=== PATIENT | female | born 1950 | race Caucasian/White ===

== ENCOUNTER 2016-08-13 06:49 | Outpatient (CLI) ==
[2016-08-13] MEDS ORDERED: DOBUTAMINE 250 ML IV ONE (07:03)
[2016-08-13] MEDS ORDERED: ATROPINE SULFATE PFS ONE (07:03)
--- NOTE | 2016-08-16 12:56 | DOBSTECHO ---
Ordering Physician: MICKEY SANDS Date of Test: 08/13/16 Reason for Examination: SOB, AORTIC STENOSIS Current Medications: SKELAXIN, NORCO, NEURONTIN, ATIVAN, LIPITOR, ZEBETA, FENOFIBRATE Height: 69" Weight: 257 LBS Target Heart Rate: 129/152 ST Segment Stage Time HR BP Rhythm +/- Up Down Comments/Symptoms Control Sitting 60 118/58 SR X NONE Dobutamine 250mg/D5W 5cmg/KG/mn 10cmg/KG/mn 3" 76 124/56 SR X NONE 15cmg/KG/mn 2" 86 SR X NONE 20cmg/KG/mn 2" 96 130/62 SR X NONE 25cmg/KG/mn 1.42 110 SR X NONE 30cmg/KG/mn 35cmg/KG/mn 40cmg/KG/mn Time: 3" HR B/P Time: 7" HR B/P Time: 8" HR B/P Recovery 96 130/56 Recovery 82 116/52 Recovery 76 Total Time: 8:42 Duration of Exercise: Maximum Heart Rate Reached: 110 Reason for Termination: Interpretation: 1. NO EVIDENCE OF ISCHEMIA WITH HEART RATE RESTING 60/MINUTE TO 110/MINUTE WITH DOBUTAMINE INFUSION 2. NO CHEST PAIN OR CHEST DISCOMFORT 3. NORMAL LEFT VENTRICULAR CONTRACTILITY AT REST AND WITH DOBUTAMINE INFUSION [facility]
--- NOTE | 2016-08-16 13:01 | ECHOSTRESS ---
Date of Exam: 08/13/16 Ordering Physician: MICKEY SANDS Reason for Echo: SOB, AORTIC STENOSIS, DOBUTAMINE STRESS --NO ISCHEMIA M-Mode Normal Adult Results LV Dimensions Normal Adult Results AoV Opening excursions >1.6 LVEDD-base- 3.5-5.8 Ao root dimensions 2.0-3.7 LVESD-base- 3.1-4.6 L. Atrium dimensions 1.9-3.8 Post. Wall thickness 0.8-1.1 IV septum (thickness) 0.7-1.2 Post. Wall excursion 0.72-1.3 Septal motion Systolic motion R. Ventricular cavity 1.5-2.0 LVEF 60% Paradoxical septal wall motion 2-D: NORMAL LEFT VENTRICULAR CONTRACTILITY--RESTING AND WITH DOBUTAMINE INFUSION M-MODE: MV: AV: TV: PV: CHAMBER SIZE: WALL MOTION: NORMAL LEFT VENTRICULAR CONTRACTILITY--RESTING AND WITH DOBUTAMINE INFUSION PERICARDIUM: INTERPRETATION: 1. NORMAL LEFT VENTRICULAR CONTRACTILITY--RESTING AND WITH DOBUTAMINE INFUSION MTDD
== END 2016-08-13 06:50 | disposition home or self-care (01) ==
LOC: CAR 06:49
PROVIDERS: ATTEND Internal Medicine
DX: R06.02 Shortness of breath (principal); I35.0 Nonrheumatic aortic (valve) stenosis

== ENCOUNTER 2016-10-08 12:08 | Outpatient (CLI) ==
--- NOTE | 2016-10-08 12:46 | DI ---
EXAM: Radiographs, left rib HISTORY: Left rib pain. COMPARISON: Chest radiograph 11/25/2015. TECHNIQUE: Three views. FINDINGS/IMPRESSION: No left rib fracture identified. Left lung is clear without pleural effusion or pneumothorax.
== END 2016-10-08 12:09 | disposition home or self-care (01) ==
LOC: RAD 12:08
PROVIDERS: ATTEND Emergency Medicine
DX: R07.81 Pleurodynia (principal)

== ENCOUNTER 2018-01-19 12:45 | Outpatient (CLI) ==
--- NOTE | 2018-01-19 15:02 | CT ---
EXAM: CT of the lumbar spine without contrast History: Lower back pain. Technique: Multiplanar CT images through the lumbar spine were obtained without the administration o f IV contrast Findings: 2.7 cm benign left adrenal adenoma. Atherosclerotic vascular calcifications. No acute fracture or subluxation of the lumbar spine. Mild to moderate multilevel degenerative disc space narrowing with endplate sclerosis and osteophyte formation. T12-L1: No significant bony central canal stenosis or bony neural foraminal narrowing. L1-L2: No significant bony central canal stenosis or bony neural foraminal narrowing. L2-L3: Small paracentral disc protrusion effacing anterior thecal sac with mild central canal stenos is. Moderate right and mild left bony neural foraminal narrowing secondary to ligamentous and facet hypertrophy. L3-L4: Small disc bulge effacing anterior thecal sac with mild central canal stenosis. Moderate kiara ateral bony neural foraminal narrowing secondary to ligamentous and facet hypertrophy. L4-L5: Modest disc protrusion effacing anterior thecal sac with moderate to severe central canal tye nosis. Moderate to severe left and mild to moderate right bony neural foraminal narrowing secondary to ligamentous and facet hypertrophy. There may be compromise of the left exiting nerve root. L5, S1: No significant disc bulge or bony central canal stenosis. Severe bilateral bony neural fora pearl narrowing secondary to ligamentous and facet hypertrophy. Impression: 1. No acute osseous abnormality of the lumbar spine. 2. Degenerative changes with level by level analysis as detailed above. Moderate to severe central canal stenosis at L4-L5 with possible compromise of the left exiting nerve root at L4-L5. 3. Benign left adrenal adenoma
== END 2018-01-19 12:46 | disposition home or self-care (01) ==
LOC: RAD 12:45
PROVIDERS: ATTEND Internal Medicine
DX: M54.5 Low back pain (principal); M47.9 Spondylosis, unspecified

== ENCOUNTER 2018-08-23 16:02 | Outpatient (CLI) ==
--- NOTE | 2018-08-23 16:51 | DI ---
EXAM: Two views of the left humerus. History: Left arm pain. Findings: No acute fracture or dislocation. Sclerosis and cystic change within the superior lateral aspect of the humeral head. No radiopaque foreign bodies. Impression: 1. No acute osseous abnormality. 2. Rotator cuff disease
--- NOTE | 2018-08-23 16:51 | DI ---
EXAM: Three views of the left shoulder. History: Left shoulder pain. Findings: Sternotomy wires. No acute fracture or dislocation. Mild to moderate narrowing of the le ft AC joint and left glenohumeral joint with small osteophytes. Undersurface osteophytes of the acro mion. Sclerosis and cystic change within the superior lateral aspect of the humeral head. Impression: 1. No acute osseous abnormality. 2. Mild to moderate osteoarthritis. 3. Rotator cuff disease
== END 2018-08-23 16:03 | disposition home or self-care (01) ==
LOC: RAD 16:02
PROVIDERS: ATTEND Internal Medicine
DX: M25.512 Pain in left shoulder (principal); M79.602 Pain in left arm

== ENCOUNTER 2018-10-17 16:23 | Emergency (ER) ==
[2018-10-17 16:36] VITALS: TEMP 97; BMI 38.3
--- NOTE | 2018-10-17 17:42 | DI ---
EXAM: Single view chest. HISTORY: Weakness, congested COMPARISON: 11/25/2015 FINDINGS: The heart is mildly enlarged. Operative changes of midline sternotomy and cardiac valvulop lasty is seen. Pulmonary vascularity is within normal limits. No focal airspace opacity or pleural effusion is seen. Osseous structures are unremarkable. IMPRESSION: No acute cardiopulmonary findings. Mild cardiomegaly with prior operative changes of heart.
[2018-10-17] MEDS: SODIUM CHLORIDE 1,000 ML IV ONE (17:59)
[2018-10-17 18:09] VITALS: BP 84/38
--- NOTE | 2018-10-17 18:29 | ED.PDOC ---
General ED Provider: Dr. IVY VALDEZ Chief Complaint: Chest Pain Stated Complaint: Chest Pressure/Weakness. Son brings pt in states she's been ill since mid Sep after undergoing Colonoscopy. Has been hospitlized twice since then but is getting worse.Today developed Lt Chest, Shoulder and neck pain.Currently denies fever or chills Time Seen by Physician: 16:45 Mode of Arrival: Wheelchair Information Source: Patient Exam Limitations: No limitations Primary Care Provider: MICKEY SANDS Nursing and Triage Documentation Reviewed and Agree: Yes Does patient meet sepsis criteria?: No System Inflammatory Response Syndrome: Not Applicable Sepsis Protocol: For patient's 13 years and over: Temp is 96.8 and below OR 101 and greater Pulse >90 BPM Resp >20/minute Acutely Altered Mental Status Are patient's symptoms suggestive of a new infection, such as: -Pneumonia -Skin, Soft Tissue -Endocarditis -UTI -Bone, Joint Infection -Implantable Device -Acute Abdominal Infection -Wound Infection -Meningitis -Blood Stream Catheter Infection -Unknown Cardiovascular Complaint Exam - Chest Pain Complaint/Exam Onset: Sudden Duration: 3 hr Symptoms Are: Still present Timing: Intermittent Length of Chest Pain Episodes: 5-10 min Initial Severity: Moderate Current Severity: Moderate Location: Reports: Diffuse, Lower sternal, Left anterior, Left lateral Pain Radiates: Reports: Back, Left shoulder, Jaw, Neck, Epigastrium Character: Reports: Tightness, Pressure Aggravating: Reports: Deep breaths Alleviating: Reports: None Associated Signs and Symptoms: Reports: Diaphoresis, Nausea, Back pain. Denies : Vomiting, Fever, Palpitations, Cough, Hemoptysis, Abdominal pain, Dizziness, Short of air, Calf pain, Calf swelling Related History: Denies: Similar episode Related Surgical History: Reports: Valve Replacement History of Healthcare-Acquired Pneumonia: Reports: No AMI/ACS Risk Factors: Reports: Sedentary TAD Risk Factors: Reports: None Pulmonary Embolism Risk Factors: Reports: None Prior Care for this Complaint: No Recent Stress Test: No Recent Echo/LV Function: No JVD Present: No Subcutaneous Emphysema Present: No Diminshed Breath Sounds: No Reproducible Chest Wall Pain: No Bilateral Pulses Present: Yes Unequal Pulses Noted: No If Risk Factors for AMI/ACS Consider: EKG, Cardiac Enzymes Care and Dx Studies Discussed With: PCP, Consultants (Hospitalist req to infuse additional IV fluid before transfer to assure BP stable/ suggested placement Central line) Review of Systems - Review Of Systems Constitutional: Reports: Malaise, Weakness, Loss of appetite Eyes: Reports: No symptoms Ears, Nose, Mouth, Throat: Reports: No symptoms Respiratory: Reports: Short of air Cardiac: Reports: Chest pain GI: Reports: No symptoms : Reports: No symptoms Musculoskeletal: Reports: No symptoms Skin: Reports: No symptoms Neurological: Reports: No symptoms Endocrine: Reports: No symptoms Hematologic/Lymphatic: Reports: No symptoms All Other Systems: Reviewed and Negative Past Medical History - Past Medical History Previously Healthy: No Endocrine: Reports: Unknown Cardiovascular: Reports: Hypertension, Other (valve surgery) Respiratory: Reports: None Hematological: Reports: None Gastrointestinal: Reports: Other ( Diarrhea) Genitourinary: Reports: None Neuro/Psych: Reports: None Musculoskeletal: Reports: None Cancer: Reports: None Last Menstrual Period: menopause - Surgical History General Surgical History: Reports: None, Unknown - Family History Family History: Reports: Unknown - Social History Smoking Status: Never smoker Hx Substance Use: No Alcohol Screening: None Lives: Alone - Immunizations Tetanus Shot up to Date: Yes Influenza Vaccine within 12 Months: Yes Physical Exam - Physical Exam Appearance: Ill-appearing, Obese Ill-appearing: Moderate Pain Distress: Moderate Eyes: MATT, EOMI, Conjunctiva clear ENT: Ears normal, Nose normal, Oropharynx normal Neck: Supple Respiratory: Airway patent, Breath sounds clear, Breath sounds equal, Respirations nonlabored Cardiovascular: RRR, Pulses normal, No rub, No murmur, Bradycardia GI/: Soft, Nontender, No masses, Bowel sounds normal, No Organomegaly Musculoskeletal: Normal strength, ROM intact, No edema, No calf tenderness Skin: Warm, Dry, Normal color Neurological: Sensation intact, Motor intact, Reflexes intact, Cranial nerves intact, Alert, Oriented Psychiatric: Affect appropriate, Mood appropriate Interpretation - Radiology Interpretation Radiology Results: Negative (no acute findings ; prev valvuloplasty) Re-Evaluation - Re-Evaluation Time of Re-Evaluation: 19:30 Status: Improved Vital Signs Stable: Yes (BP 106/60; 96/56) Appearance: NAD Lungs: Clear Skin: Warm and Dry Neuro: Alert and Oriented X3 CV: RRR - Re-Evaluation Time of Re-Evaluation: 20:00 Status: Improved Vital Signs Stable: Yes Appearance: NAD Skin: Warm and Dry Neuro: Alert and Oriented X3 CV: RRR Physician Notification - Case Discussed Physician Notified: Dr Sands Time of Notification: 17:15 (Rec Transfer to higher level of care) Critical Care Note - Critical Care Note Total Time (mins): 60 Course - Course Hematology/Chemistry: 10/17/18 16:50 10/17/18 16:50 Orders, Labs, Meds: Lab Review 10/17/18 10/17/18 10/17/18 16:50 16:50 17:05 WBC 22.57 H RBC 3.51 L Hgb 9.0 L Hct 29.1 L MCV 82.9 MCH 25.6 L MCHC 30.9 L RDW Coeff of Jessica 16.0 H Plt Count 296 Immature Gran % (Auto) 1.0 Neut % (Auto) 82.7 Lymph % (Auto) 7.3 L [place] % (Auto) 8.3 Eos % (Auto) 0.3 Baso % (Auto) 0.4 Immature Gran # (Auto) 0.2 Neut # (Auto) 18.7 H Lymph # (Auto) 1.6 [place] # (Auto) 1.9 Eos # (Auto) 0.1 Baso # (Auto) 0.1 Sodium 141.0 Potassium 3.51 Chloride 104.0 Carbon Dioxide 27.4 Anion Gap 13.11 BUN 37.3 H Creatinine 2.80 H Estimated GFR (MDRD) 17.00 BUN/Creatinine Ratio 13.32 Glucose 127.1 H Lactic Acid Calcium 8.43 Magnesium 2.37 H Total Bilirubin 0.56 AST 20.4 ALT 10.9 Alkaline Phosphatase 89.5 Total Creatine Kinase Troponin I 0.304 H Total Protein 6.19 L Albumin 2.78 L Globulin 3.41 Albumin/Globulin Ratio 0.81 Influ A Molecular Assay Negative by naat Influ B Molecular Assay Negative by naat Aerob & Anaerob Suscept Organism ID Bacterial ID 10/17/18 10/17/18 10/17/18 17:15 17:17 17:27 WBC RBC Hgb Hct MCV MCH MCHC RDW Coeff of Jessica Plt Count Immature Gran % (Auto) Neut % (Auto) Lymph % (Auto) [place] % (Auto) Eos % (Auto) Baso % (Auto) Immature Gran # (Auto) Neut # (Auto) Lymph # (Auto) [place] # (Auto) Eos # (Auto) Baso # (Auto) Sodium Potassium Chloride Carbon Dioxide Anion Gap BUN Creatinine Estimated GFR (MDRD) BUN/Creatinine Ratio Glucose Lactic Acid 2.00 Calcium Magnesium Total Bilirubin AST ALT Alkaline Phosphatase Total Creatine Kinase Troponin I Total Protein Albumin Globulin Albumin/Globulin Ratio Influ A Molecular Assay Influ B Molecular Assay Aerob & Anaerob Suscept Not Reportable Not Reportable Organism ID Gemella haemolysans H Gemella haemolysans H Bacterial ID Final report H Final report H 10/17/18 10/17/18 17:35 17:35 WBC RBC Hgb Hct MCV MCH MCHC RDW Coeff of Jessica Plt Count Immature Gran % (Auto) Neut % (Auto) Lymph % (Auto) [place] % (Auto) Eos % (Auto) Baso % (Auto) Immature Gran # (Auto) Neut # (Auto) Lymph # (Auto) [place] # (Auto) Eos # (Auto) Baso # (Auto) Sodium Potassium Chloride Carbon Dioxide Anion Gap BUN Creatinine Estimated GFR (MDRD) BUN/Creatinine Ratio Glucose Lactic Acid Calcium Magnesium Total Bilirubin AST ALT Alkaline Phosphatase Total Creatine Kinase 22.8 L Troponin I Total Protein Albumin Globulin Albumin/Globulin Ratio Influ A Molecular Assay Influ B Molecular Assay Aerob & Anaerob Suscept Not Reportable Organism ID Gemella haemolysans H Bacterial ID Final report H Orders Category Date Time Status EKG-(ED ONLY) Stat CARDIO 10/17/18 17:03 Completed BLOOD CULTURE Stat LAB 10/17/18 17:38 Completed CBC W/ AUTO DIFF Stat LAB 10/17/18 16:50 Completed CMP [COMPREHENSIVE METABOLIC PANEL] Stat LAB 10/17/18 16:50 Completed CPK [CREATINE KINASE] Stat LAB 10/17/18 17:35 Completed FLU A & B MOLECULAR [FLU A/B MOLECULAR] Stat LAB 10/17/18 17:05 Completed LACTIC ACID Stat LAB 10/17/18 17:27 Completed MAGNESIUM Stat LAB 10/17/18 16:50 Completed POS BC ID AND SENA Stat LAB 10/17/18 17:15 Completed POS BC ID AND SENA Stat LAB 10/17/18 17:35 Completed POS BC ID AND SENA Stat LAB 10/17/18 17:35 Completed POS BC ID AND SENA Stat LAB 10/17/18 17:35 Completed SUSCEPT, AER + ANAEROB Routine LAB 10/17/18 17:17 Completed SUSCEPT, AER + ANAEROB Routine LAB 10/17/18 17:35 Completed SUSCEPT, AER + ANAEROB Stat LAB 10/17/18 17:15 Completed TROPONIN I Stat LAB 10/17/18 16:50 Completed Sodium Chloride 0.9% [Sodium Chloride] 1,000 ml MEDS 10/17/18 17:05 Discontinued IV ONCE CHEST, 1V AP ONLY Stat RADS 10/17/18 17:04 Completed Medications Discontinued Medications Generic Name Dose Route Start Last Admin Trade Name Nae PRN Reason Stop Dose Admin Sodium Chloride 1,000 mls @ 500 mls/hr 10/17/18 17:05 10/17/18 17:59 Sodium Chloride IV 10/17/18 19:04 500 mls/hr ONCE ONE Administration Vital Signs: Temp Pulse Resp BP Pulse Ox 10/17/18 18:00 46 L 84/38 L 10/17/18 17:38 48 L 87/41 L 10/17/18 17:00 53 L 77/40 L 10/17/18 16:30 54 L 86/35 L 10/17/18 16:24 97 F L 82 16 86/35 L 99 ALINE Risk Score ALINE Risk Score: Risk Score Odds of by 30D 0 0.1 (0.1-0.2) 1 0.3 (0.2-0.3) 2 0.4 (0.3-0.5) 3 0.7 (0.6-0.9) 4 1.2 (1.0-1.5) 5 2.2 (1.9-2.6) 6 3.0 (2.5-3.6) 7 4.8 (3.8-6.1) Departure - Departure Time of Disposition: 19:30 Disposition: TSF SHORT-TRM HOSP Discharge Problem: Chest pain, Dehydration, moderate, Troponin level elevated Instructions: Angina (ED), Dehydration (ED) Condition: Fair Pt referred to PMD for follow-up: Yes (Dr Sands) IPMP verified?: No Additional Instructions: Disussed with hospitalist RN Req referral to RE for elev of troponin Allergies/Adverse Reactions: Allergies Penicillins Adverse Reaction (Verified 10/17/18 16:37) Sulfa (Sulfonamide Antibiotics) Adverse Reaction (Verified 10/17/18 16:37) Home Medications: Ambulatory Orders 1 [Unobtainable] 10/17/18 Transfer Form Completed: Yes Disposition Discussed With: Patient, Family (Son's left hospital)
== END 2018-10-17 19:50 | disposition short-term general hospital (02) ==
LOC: ED 16:23
DX: R07.9 Chest pain, unspecified (principal); E86.0 Dehydration; R79.89 Other specified abnormal findings of blood chemistry; R53.1 Weakness; M54.2 Cervicalgia; M25.512 Pain in left shoulder; R10.13 Epigastric pain; R11.0 Nausea; R06.02 Shortness of breath; I10 Essential (primary) hypertension; Z95.2 Presence of prosthetic heart valve; Z78.0 Asymptomatic menopausal state; R23.0 Cyanosis
CPT/HCPCS: 36415; 80053; 82550; 83605; 83735; 84484; 85025; 87040; 87070; 87077; 87186; 87502; 93005; 93010; 96360; 96361; 99285

== ENCOUNTER 2018-11-08 12:58 | Outpatient (CLI) ==
[2018-11-08 18:28] VITALS: BMI 43.4
== END 2018-11-08 13:04 | disposition critical access hospital (66) ==
LOC: AMBL 12:58
PROVIDERS: ATTEND Emergency Medicine
DX: D64.9 Anemia, unspecified (principal); R79.89 Other specified abnormal findings of blood chemistry

== ENCOUNTER 2018-11-08 13:11 | Inpatient (IN) ==
[2018-11-08] MEDS ORDERED: SODIUM CHLORIDE 1,000 ML IV STA ×2 (13:47→18:58)
--- NOTE | 2018-11-08 13:48 | ED.PDOC ---
General ED Provider: Dr. IVY VALDEZ Chief Complaint: Abnormal Labs Stated Complaint: Rectal Bleeding. Sent from [place] for evaluation due to a low H/ H this AM. Past Hx hemorrhoidal bleeding. Advised referred in by pcp Dr Diaz Time Seen by Physician: 13:15 Mode of Arrival: Stretcher Information Source: Patient, Halfway, EMT Primary Care Provider: MICKEY DIAZ Nursing and Triage Documentation Reviewed and Agree: Yes Does patient meet sepsis criteria?: No System Inflammatory Response Syndrome: Not Applicable Sepsis Protocol: For patient's 13 years and over: Temp is 96.8 and below OR 101 and greater Pulse >90 BPM Resp >20/minute Acutely Altered Mental Status Are patient's symptoms suggestive of a new infection, such as: -Pneumonia -Skin, Soft Tissue -Endocarditis -UTI -Bone, Joint Infection -Implantable Device -Acute Abdominal Infection -Wound Infection -Meningitis -Blood Stream Catheter Infection -Unknown GI Complaint Exam - Rectal Complaint/Exam Patient Complains of: Reports: Rectal bleeding Onset/Duration: several weeks intermittently Symptoms Are: Still present Timing: Intermittent Episodes Lasting: Hours Initial Severity: Moderate Current Severity: Mild Location: Reports: Anal, Rectal Character: Reports: Dull, Burning Aggravating: Reports: Bowel movement, Sitting Alleviating: Reports: Position Associated Signs and Symptoms: Reports: Rectal bleeding, Bright red blood w/ stool Related History: Reports: Similar episode, Hemorrhoids Related Surgical History: Reports: AAA Repair Rectal Exam: Present: Internal hemorrhoids, External hemorrhoids, Heme positive , Tenderness (MAGGIE tender. no masses identified; small firm nodular density at anal ring). Absent: Fluctuant rectal mass Review of Systems - Review Of Systems Constitutional: Reports: No symptoms Eyes: Reports: No symptoms Ears, Nose, Mouth, Throat: Reports: No symptoms Respiratory: Reports: No symptoms Cardiac: Reports: No symptoms GI: Reports: No symptoms : Reports: No symptoms Musculoskeletal: Reports: No symptoms Skin: Reports: No symptoms Neurological: Reports: No symptoms Endocrine: Reports: No symptoms Hematologic/Lymphatic: Reports: No symptoms All Other Systems: Reviewed and Negative Past Medical History - Past Medical History Previously Healthy: No Endocrine: Reports: Unknown Cardiovascular: Reports: Hypertension, Other (valve surgery) Respiratory: Reports: None Hematological: Reports: None Gastrointestinal: Reports: Other ( Diarrhea/hemorhoids) Genitourinary: Reports: None Neuro/Psych: Reports: None Musculoskeletal: Reports: None Cancer: Reports: None Last Menstrual Period: menopause - Surgical History General Surgical History: Reports: None, Unknown - Family History Family History: Reports: Unknown - Social History Smoking Status: Never smoker Hx Substance Use: No Alcohol Screening: None - Immunizations Influenza Vaccine within 12 Months: Yes Physical Exam - Physical Exam Appearance: Ill-appearing, Obese Ill-appearing: Mild Pain Distress: Mild Eyes: MATT, EOMI, Conjunctiva clear, Conjunctiva inflammed ENT: Ears normal, Nose normal, Oropharynx normal, Epistaxis Neck: Supple Respiratory: Airway patent, Breath sounds clear, Breath sounds equal, Respirations nonlabored Cardiovascular: RRR GI/: Soft, Nontender, No masses, Bowel sounds normal, No Organomegaly Musculoskeletal: Normal strength, ROM intact, No edema, No calf tenderness Skin: Warm, Dry, Normal color Neurological: Sensation intact, Motor intact, Reflexes intact, Cranial nerves intact, Alert, Oriented Psychiatric: Affect appropriate, Mood appropriate Critical Care Note - Critical Care Note Total Time (mins): 0 Course - Course Hematology/Chemistry: 11/08/18 13:25 11/08/18 13:25 Orders, Labs, Meds: Lab Review 11/08/18 11/08/18 11/08/18 13:25 13:25 13:25 WBC 11.42 H RBC 3.28 L Hgb 8.2 L Hct 27.2 L MCV 82.9 MCH 25.0 L MCHC 30.1 L RDW Coeff of Jessica 17.1 H Plt Count 237 Immature Gran % (Auto) 1.1 Neut % (Auto) 77.5 Lymph % (Auto) 8.[address] [place] % (Auto) 10.6 H Eos % (Auto) 2.0 Baso % (Auto) 0.3 Immature Gran # (Auto) 0.1 Neut # (Auto) 8.9 H Lymph # (Auto) 1.0 [place] # (Auto) 1.2 Eos # (Auto) 0.2 Baso # (Auto) 0.0 Sodium 135.8 Potassium 4.76 Chloride 101.9 Carbon Dioxide 25.0 Anion Gap 13.66 BUN 35.5 H Creatinine 1.02 Estimated GFR (MDRD) 54.00 BUN/Creatinine Ratio 34.80 Glucose 130.0 H Calcium 8.46 Total Bilirubin 1.12 AST 27.3 ALT 12.1 Alkaline Phosphatase 122.2 Total Protein 6.67 Albumin 3.15 L Globulin 3.52 Albumin/Globulin Ratio 0.89 Lipase 36.1 Stl Occult Blood (IFOB) Stool Occult Blood #2 Stool Occult Blood #3 Blood Type A POSITIVE Antibody Screen Crossmatch (AH) 11/08/18 11/08/18 14:55 15:20 WBC RBC Hgb Hct MCV MCH MCHC RDW Coeff of Jessica Plt Count Immature Gran % (Auto) Neut % (Auto) Lymph % (Auto) [place] % (Auto) Eos % (Auto) Baso % (Auto) Immature Gran # (Auto) Neut # (Auto) Lymph # (Auto) [place] # (Auto) Eos # (Auto) Baso # (Auto) Sodium Potassium Chloride Carbon Dioxide Anion Gap BUN Creatinine Estimated GFR (MDRD) BUN/Creatinine Ratio Glucose Calcium Total Bilirubin AST ALT Alkaline Phosphatase Total Protein Albumin Globulin Albumin/Globulin Ratio Lipase Stl Occult Blood (IFOB) Positive Stool Occult Blood #2 No specimen received Stool Occult Blood #3 No specimen received Blood Type A POSITIVE Antibody Screen Negative Crossmatch ([facility]) See Detail Orders Category Date Time Status [facility] ADMISSION 11/08/18 16: 14 Active EKG-(ED ONLY) Stat CARDIO 11/08/18 13:46 Completed TELEMETRY MONITORING TELE CARE 11/08/18 16:15 Active CBC W/ AUTO DIFF Stat LAB 11/08/18 13:25 Completed CMP [COMPREHENSIVE METABOLIC PANEL] Stat LAB 11/08/18 13:25 Completed GUAIAC [OCCULT BLOOD, STOOL] Stat LAB 11/08/18 15:20 Completed LIPASE Stat LAB 11/08/18 13:25 Completed PACKED CELLS Stat LAB 11/08/18 14:55 Results TYPE AND SCREEN Stat LAB 11/08/18 14:55 Results UA [URINALYSIS C & S IF INDICATED] Stat LAB 11/08/18 13:44 Uncollected 0.9 % Sodium Chloride [Saline Flush] MEDS 11/08/18 13:46 Active 1 syr IVF PRN PRN Sodium Chloride 0.9% [Sodium Chloride] 1,000 ml MEDS 11/08/18 13:47 Active IV 125 mls/hr CHEST, 1V AP ONLY Stat RADS 11/08/18 13:47 Completed Medications Generic Name Dose Route Start Last Admin Trade Name Freq PRN Reason Stop Dose Admin Acetaminophen 650 mg 11/08/18 16:50 Tylenol PO Q4H PRN Pain or temperture elevation Furosemide 40 mg 11/08/18 16:29 Lasix IVP ONCE PRN after transfusion completed Gabapentin 300 mg 11/08/18 21:00 Neurontin PO BEDTIME KEITH Sodium Chloride 1,000 mls @ 125 mls/hr 11/08/18 13:47 11/08/18 13:53 Sodium Chloride IV 11/08/18 21:46 125 mls/hr .Q8H STA Administration Non-Formulary Medication 40 mg 11/08/18 21:00 Atorvastatin Calcium [Atorvastatin Calcium] PO DAILY KEITH Non-Formulary Medication 30 gm 11/08/18 21:00 Hydrocortisone/Pramoxine [Analpram Hc 2.5%-1% Cream] RC BID KEITH Non-Formulary Medication 50 mg 11/09/18 09:00 Losartan Potassium PO DAILY KEITH Non-Formulary Medication 2 mg 11/08/18 21:00 Tizanidine Hcl [Zanaflex] PO BID KEITH Non-Formulary Medication 1,000 mcg 11/09/18 09:00 Cyanocobalamin (Vitamin B-12) [B-12] PO DAILY KEITH Pantoprazole Sodium 40 mg 11/09/18 09:00 Protonix PO DAILY KEITH Potassium Chloride 10 meq 11/09/18 09:00 Micro-K Cap PO DAILY KEITH Saccharomyces Boulardii 250 mg 11/08/18 21:00 Florastor PO BID KEITH Sodium Chloride 1 syr 11/08/18 13:46 11/08/18 13:53 Saline Flush IVF 1 syr PRN PRN Administration To flush IV Vital Signs: Temp Pulse Resp BP Pulse Ox 11/08/18 13:13 99.6 F 82 16 117/59 L 95 Departure - Departure Time of Disposition: 16:45 Disposition: ADMITTED INPATIENT Discharge Problem: Hematochezia, Symptomatic anemia, Hemorrhoids, Weakness, Elevated BUN Condition: Fair Pt referred to PMD for follow-up: Yes (dr diaz) MP verified?: No Allergies/Adverse Reactions: Allergies Penicillins Adverse Reaction (Verified 11/08/18 13:32) Sulfa (Sulfonamide Antibiotics) Adverse Reaction (Verified 11/08/18 13:32) Home Medications: Ambulatory Orders Apixaban [Eliquis] 5 mg PO BID 11/08/18 Atorvastatin Calcium 40 mg PO DAILY 11/08/18 Cefepime HCl [Maxipime] 2 gm IV Q12HR 11/08/18 Cholecalciferol (Vitamin D3) [Vitamin D3] 1,000 unit PO DAILY 11/08/18 Cyanocobalamin (Vitamin B-12) [B-12] 1,000 mcg PO DAILY 11/08/18 Fenofibrate Nanocrystallized [Fenofibrate] 145 mg PO DAILY 11/08/18 Furosemide 20 mg PO DAILY 11/08/18 Gabapentin 300 mg PO BEDTIME 11/08/18 Hydrocortisone/Pramoxine [Analpram Hc 2.5% Cream] 30 gm RC BID 11/08/18 Losartan Potassium [Cozaar] 50 mg PO DAILY 11/08/18 Pantoprazole Sodium 40 mg PO DAILY 11/08/18 Potassium Chloride [Micro-K Cap] 10 meq PO DAILY 11/08/18 Saccharomyces Boulardii [Digestive Probiotic] 250 mg PO BID 11/08/18 Tizanidine HCl [Zanaflex] 2 mg PO BID 11/08/18 Disposition Discussed With: Patient
--- NOTE | 2018-11-08 14:49 | DI ---
EXAM: CHEST FRONTAL VIEW HISTORY: Weakness. COMPARISON: 10/17/2018 FINDINGS: Stable cardiomegaly. Previous cardiac valvular repair. Sternotomy wires are present. No acute infiltrates are seen. No vascular congestion. There is no consolidation, visible pleural flu id or pneumothorax. Bones reveal no acute fracture. IMPRESSION: No acute cardiopulmonary process.
[2018-11-08] MEDS ORDERED: LASIX IVP PRN (16:29)
[2018-11-08] MEDS ORDERED: TYLENOL PO PRN ×2 (16:50→18:45)
[2018-11-08 18:28] VITALS: BMI 43.4
[2018-11-08] MEDS ORDERED: LOPRESSOR PO PRN (18:45)
[2018-11-08] MEDS ORDERED: NORCO 7.5-325 PO PRN (18:45)
[2018-11-08] MEDS ORDERED: LIPITOR ONE (20:34)
[2018-11-08] MEDS: FLORASTOR PO SCH (20:57)
[2018-11-08] MEDS: NEURONTIN PO SCH (20:58)
[2018-11-08] MEDS ORDERED: NYSTOP POWDER TP SCH (21:00)
[2018-11-08] MEDS ORDERED: HYDROCORTISONE RC SCH (21:00)
[2018-11-08] MEDS ORDERED: MAXIPIME IV SCH (21:00)
[2018-11-08] MEDS ORDERED: ELIQUIS PO SCH (21:00)
[2018-11-08] MEDS ORDERED: NON-FORMULARY MEDICATION (Atorvastatin Calcium [Atorvastatin Calcium] 40 MG) PO SCH (21:00)
[2018-11-08] MEDS ORDERED: NON-FORMULARY MEDICATION (Tizanidine Hcl [Zanaflex] 2 MG) PO SCH (21:00)
[2018-11-08] MEDS ORDERED: PRAMOXINE RC SCH (21:00)
[2018-11-08] MEDS ORDERED: HYDROCORTISONE RC PRN (21:04)
[2018-11-08] MEDS ORDERED: PRAMOXINE RC PRN (21:04)
[2018-11-08] MEDS ORDERED: ZANAFLEX ONE (21:13)
[2018-11-09] MEDS: NORCO 7.5-325 PO PRN ×3 (02:11→22:21)
[2018-11-09] MEDS ORDERED: NON-FORMULARY MEDICATION (Losartan Potassium 50 MG) PO SCH (09:00)
[2018-11-09] MEDS ORDERED: NON-FORMULARY MEDICATION (Cholecalciferol (Vitamin D3) [Vitamin D3] 1,000 UNIT) PO SCH (09:00)
--- NOTE | 2018-11-09 09:27 | PCM.PROG ---
Attending Provider: ATTENDING PROVIDER: Dr. MICKEY SANDS DATE OF SERVICE: 11/09/18 SUBJECTIVE: This 68 year old WHITE/ F was hospitalized 11/08/18 with symptomatic anemia. The patient has no orthopnea, no PND, no chest pain. She has no fever or chills. Rectal bleeding from hemorrhoids. Hemoglobin 9.2, hematocrit 30 after two units of PRBC. REVIEW OF SYSTEMS: CONSTITUTIONAL: No night sweats. No fatigue, malaise, lethargy. No fever or chills. HEENT: Eyes: No visual changes. No eye pain. No eye discharge. ENT: No runny nose. No epistaxis. No sinus pain. No odynophagia. No congestion. RESPIRATORY: No cough, no congestion. No hemoptysis. No shortness of breath. CARDIOVASCULAR: No angina symptoms. No CHF symptoms. No atypical chest pain for CAD. No palpitations. No orthopnea.. GASTROINTESTINAL: No abdominal pain. No nausea or vomiting. No diarrhea or constipation. Positive for discomfort of hemorrhoids. No hematemesis. No hematochezia. GENITOURINARY: No urgency. No frequency. No dysuria. No hematuria. No obstructive symptoms. No discharge. No pain. No significant abnormal bleeding. MUSCULOSKELETAL: No musculoskeletal pain; no joint swelling. NEUROLOGICAL: Awake, alert, oriented to time, place and person. No headache. No neck pain. No syncope. No seizures. No dizziness. PSYCHIATRIC: Not anxious. No depression. No suicidal thoughts. No homicidal thoughts. SKIN: No rash. No lesions. No wounds. ENDOCRINE: No unexplained weight loss. No weight gain. HEMATOLOGIC/LYMPHATIC: No anemia. No purpura. No petechiae. No prolonged or excessive bleeding. No palpable lymph nodes. PHYSICAL EXAMINATION: GENERAL: The patient is awake, alert and oriented, lying in bed in no distress. VITAL SIGNS: Temperature 97.7 F, Pulse 70, Respiratory Rate 18, BP 117/73, Pulse Ox 94% HEENT: Head normocephalic, atraumatic. Eyes: Extraocular muscles are intact. Pupils are equal, round and reactive to light and accommodation. Ears: No lesions. Nose appeared normal. Throat: No exudate or erythema. NECK: Supple. No JVD, no carotid bruit. No lymphadenopathy or thyromegaly. LUNGS: Clear to auscultation. Percussion note normal. Chest symmetrical. HEART: S1, S2, no S3. Grade II to III/ systolic murmur throughout the precordium. No cyanosis or clubbing. No ascites. Pulses: Dorsalis pedis and posterior tibial pulses +1 to +2 both sides. ABDOMEN: Soft. Non-tender. Bowel sounds active. No CVA tenderness. No mass felt. EXTREMITIES: No edema. Full range of motion of all extremities, equal. NEUROLOGIC: No focal deficit. Cranial nerves II through XII are grossly intact. No headache, no double vision or headache. SKIN: Warm and dry. Intact. Turgor-normal. LYMPHATIC: No palpable lymph nodes/no lymphedema. MUSCULOSKELETAL: Normal joints with no swelling. Muscle tone is normal. LAB REVIEW: 11/09/18 05:00 11/09/18 05:00 11/09/18 07:15: Stl Occult Blood (IFOB) Positive, Stool Occult Blood #2 No specimen received, Stool Occult Blood #3 No specimen received 11/09/18 05:00: Sodium 136.3, Potassium 4.01, Chloride 102.9, Carbon Dioxide 25.6, Anion Gap 11.81, BUN 31.8 H, Creatinine 1.03, Estimated GFR (MDRD) 53.00, BUN/Creatinine Ratio 30.87, Glucose 128.9 H, Calcium 8.78, Total Bilirubin 1.92 H, AST 18.0, ALT 12.4, Alkaline Phosphatase 126.0, Total Protein 6.39, Albumin 3.01 L, Globulin 3.38, Albumin/Globulin Ratio 0.89 11/09/18 05:00: PT 14.8 H, INR 1.50 11/09/18 05:00: WBC 12.69 H, RBC 3.69 L, Hgb 9.3 L, Hct 30.2 L, MCV 81.8, MCH 25.2 L, MCHC 30.8 L, RDW Coeff of Jessica 17.2 H, Plt Count 250, Immature Gran % ( Auto) 1.7, Neut % (Auto) 75.2, Lymph % (Auto) 10.8, Garza % (Auto) 10.2 H, Eos % (Auto) 1.7, Baso % (Auto) 0.4, Immature Gran # (Auto) 0.2, Neut # (Auto) 9.5 H, Lymph # (Auto) 1.4, Garza # (Auto) 1.3, Eos # (Auto) 0.2, Baso # (Auto) 0.1 11/09/18 01:50: Hgb 9.0 L, Hct 29.5 L 11/08/18 17:19: Urine Color Yellow, Urine Clarity Clear, Urine pH 5.0, Ur Specific [facility] 1.010, Urine Protein Trace, Urine Glucose (UA) Negative, Urine Ketones Negative, Urine Blood 1+, Urine Nitrite Negative, Urine Bilirubin Negative, Urine Urobilinogen 0.2, Ur Leukocyte Esterase Trace, Urine Microscopic RBC 2-5, Urine Microscopic WBC 0-2, Ur Squamous Epith Cells Tntc, Urine Mucus Trace 11/08/18 15:20: Stl Occult Blood (IFOB) Positive, Stool Occult Blood #2 No specimen received, Stool Occult Blood #3 No specimen received 11/08/18 14:55: Blood Type A POSITIVE, Antibody Screen Negative, Crossmatch ([facility] ) See Detail 11/08/18 13:25: Iron 37.4, TIBC 303, % Saturation 12 11/08/18 13:25: Blood Type A POSITIVE 11/08/18 13:25: Sodium 135.8, Potassium 4.76, Chloride 101.9, Carbon Dioxide 25.0, Anion Gap 13.66, BUN 35.5 H, Creatinine 1.02, Estimated GFR (MDRD) 54.00, BUN/Creatinine Ratio 34.80, Glucose 130.0 H, Calcium 8.46, Total Bilirubin 1.12 , AST 27.3, ALT 12.1, Alkaline Phosphatase 122.2, Total Protein 6.67, Albumin 3.15 L, Globulin 3.52, Albumin/Globulin Ratio 0.89, Lipase 36.1 11/08/18 13:25: WBC 11.42 H, RBC 3.28 L, Hgb 8.2 L, Hct 27.2 L, MCV 82.9, MCH 25.0 L, MCHC 30.1 L, RDW Coeff of Jessica 17.1 H, Plt Count 237, Immature Gran % ( Auto) 1.1, Neut % (Auto) 77.5, Lymph % (Auto) 8.5 L, Garza % (Auto) 10.6 H, Eos % (Auto) 2.0, Baso % (Auto) 0.3, Immature Gran # (Auto) 0.1, Neut # (Auto) 8.9 H , Lymph # (Auto) 1.0, Garza # (Auto) 1.2, Eos # (Auto) 0.2, Baso # (Auto) 0.0 ASSESSMENT: 1. Anemia symptomatic, cause hemorrhoids. 2. The patient has had aortic valve replacement. 3. Neuropathy. 4. Generalized DJD. 5. Hypertension. PLAN: 1. Anusol HC suppository one b.i.d. 2. Nystatin powder. 3. Monitor telemetry. 4. CBC, CMP. 5. Eliquis will be on hold now due to active bleeding but may have to resume that. 6. Continue orders as per infectious disease specialist from [facility]. Plan and coordination of the patient's care discussed in the presence of Breast Worker and nurse. CONDITION: Stable SCRIBED BY: DK JOEL, Blue Line Operator scribed while in presence of service performed by Dr. MICKEY SANDS on 11/09/18 ([id number])
[2018-11-09] MEDS: LIPITOR PO SCH (09:33)
[2018-11-09] MEDS: LASIX TAB PO SCH (09:34)
[2018-11-09] MEDS: VITAMIN D PO SCH (09:34)
[2018-11-09] MEDS: ZANAFLEX PO SCH ×2 (09:34→20:41)
[2018-11-09] MEDS: COZAAR PO SCH (09:34)
[2018-11-09] MEDS: MICRO-K CAP PO SCH (09:34)
[2018-11-09] MEDS: PROTONIX PO SCH (09:34)
[2018-11-09] MEDS: FLORASTOR PO SCH ×2 (09:35→20:43)
[2018-11-09] MEDS: MAXIPIME 2 GM in SODIUM CHLORIDE 100 ML IV SCH ×2 (09:35→20:43)
[2018-11-09] MEDS: NYSTOP POWDER TP SCH ×2 (09:38→21:03)
[2018-11-09] MEDS: ANUCORT-HC RC SCH ×2 (09:39→20:40)
[2018-11-09] MEDS: NON-FORMULARY MEDICATION (Cyanocobalamin (Vitamin B-12) [B-12] 1,000 MCG) PO SCH (09:40)
--- NOTE | 2018-11-09 11:38 | RS.PTINEVL ---
Subjective - Patient information Date of Evaluation: 11/09/18 Date of Arrival on Unit: 11/08/18 Admitted From:: Retirement Diagnosis: rectal bleeding, hematochezia, anemia Usual Living Arrangement: Retirement Living Arrangement Comments: pt was at [facility] getting rehab and IV antibiotics prior to last illness was living at home with her son Home Environment: Level/No stairs (at prison no stairs, pt at home has a few steps with HR.) Medical History: Hypertension, Arthritis Medical History Comments:: heart disease, hemorrhoids LATEX ALLERGY?: No Medications: see chart Subjective Information/ Patient Comments:: pt states that she will try to walk, not sure how far she can walk. - Level of function Abilities prior to this admission: prior to admit to [facility] pt was independent with ADL's and amb short distances. Current Level of Function: Partially Dependent Current Equipment Used at Home: rolling walker(rollator) Interventions - Objective Patient Orientation: Person, Place, Time, Situation Current Interventions: IV's, Telemetry Observation: pt with bleeding noted on pad (bright red) Range of Motion - ROM Right Upper Extremity AROM: WFL's Left Upper Extremity AROM: WFL's Right Lower Extremity AROM: WFL's Left Lower Extremity AROM: WFL's Muscle Strength - Muscle Strength Right Upper Extremity Strength: Mild Weakness (grossly 4/5) Left Upper Extremity Strength: Mild Weakness (grossly 4/5) Right Lower Extremity Strength: Mild Weakness (hip flex 4-/5, knee flex/ext 4/5 , ankle DF/PF 4/5) Left Lower Extremity Strength: Mild Weakness (hip flex 4-/5, knee flex/ext 4/5, ankle DF/PF 4/5) Sensation - Sensation Right Upper Extremity Sensation: Intact/Normal Left Upper Extremity Sensation: Intact/Normal Right Lower Extremity Sensation: Impaired Left Lower Extremity Sensation: Impaired Comments: pt reports n/t B feet and LE Palpation Palpation Findings: None/Normal Balance - Sitting Balance and Reactions Static Sitting Balance: Good Dynamic Sitting Balance: Fair - Standing Balance and Reactions Static Standing Balance: Poor Dynamic Standing Balance: Poor Standing Equilibrium Reactions: Delayed Left, Delayed Right Standing Protective Reactions: Delayed Left, Delayed Right Functional Mobility - Bed Mobility Rolling R/L: CGA Supine to Sit: Min Assist - Transfers Sit to Stand: CGA Stand to Sit: CGA, Min Assist - Safety Awareness Safety Awareness: Fair FLACO INDEX SCORE: n/a Ambulation - Ambulation Assistive Device Used: Rolling Walker Orthotic/Prosthetic Device: No Distance: 30ft Assistance needed with Ambulation: CGA, Min Assist, 1 person assist, 2 person assist Quality of Ambulation: pt amb with CGA to min x 1 + 1 for IV Gait Deviations: Wide Based gait, Forward posture, Short stride Ambulation Comments: pt amb with flexed posture, decreased step length. pt is anxious requires verbal cues for encouragement. Factors Affecting Ambulation: Decreased Balance, Weakness, Decreased Safety, Limited Endurance, Limited Sensation Treatment time - Time with patient Length of Evaluation: 21 Total treatment time: 26 Patient Education - Education Patient Education: Activity Modification, Education of Plan of Care Teaching Recipient: Patient Teaching Methods: Discussion Comments: discussion with pt regarding POC. Encouraged pt to try to sit up in chair for a bit. Assessment - Assessment Problem List:: Decreased level of function, Requires training/education, Decreased safety/Risk of falls, Weakness Rehab Potential: Good Further Therapy Indicated?: Yes Candidate for Swing Bed for Therapy Services?: Feel pt may not be a candidate for swing bed due to pt [facility] hospital from the prison. Evaluation Complexity: HISTORY: Medium (HTN, OA, heart dz, balance, anemia), EXAM OF BODY SYSTEMS: Medium (strength, balance as well as gait ), CLINICAL PRESENTATION: Medium, CLINICAL DECISION MAKING: Medium Short Term Goals GOAL #1: pt independent with rolling and bridging in bed. Goal to be met by: 11/10/18 GOAL #2: Transfer sup to/from sit CGA Goal to be met by: 11/10/18 GOAL #3: Sit to/from stand CGA Goal to be met by: 11/10/18 GOAL #4: pt amb with rwx 50ft with CGA without LOB Goal to be met by: 11/10/18 Ore Dressing Engineer Goals GOAL #1: pt transfer sup to/from sit SBA Goal to be met by: 11/13/18 GOAL #2: sit to/from stand SBA Goal to be met by: 11/13/18 GOAL #3: pt amb functional distances with rwx CGA to SBA no LOB Goal to be met by: 11/13/18 Plan Plan of Care: Therapeutic EX, Therapeutic Activity Other:: gait training Frequency of Treatment: 1-2 X day, as tolerated Duration of Treatment: 5 days Anticipated Discharge Destination: Longterm Care Facility Treatment Diagnosis (ICD 10 Codes): R26.2 difficulty walking. R26.81 balance impaired. M62.81 weakness Has the Physician been added for Co-signature?: Yes
[2018-11-09] MEDS: CLOTRIMAZOLE TROCHE MUCOUSMEMB SCH ×2 (16:33→21:11)
[2018-11-09] MEDS: NEURONTIN PO SCH (20:43)
[2018-11-10] MEDS: CLOTRIMAZOLE TROCHE MUCOUSMEMB SCH ×4 (05:33→17:13)
[2018-11-10] MEDS: LASIX TAB PO SCH (05:33)
[2018-11-10] MEDS: PROTONIX PO SCH (05:33)
[2018-11-10] MEDS: ZANAFLEX PO SCH ×2 (09:05→20:50)
[2018-11-10] MEDS: NORCO 7.5-325 PO PRN ×2 (09:05→22:50)
[2018-11-10] MEDS: VITAMIN D PO SCH (09:05)
[2018-11-10] MEDS: LIPITOR PO SCH (09:05)
[2018-11-10] MEDS: FLORASTOR PO SCH ×2 (09:05→20:49)
[2018-11-10] MEDS: FERROUS SULFATE PO SCH ×2 (09:06→17:03)
[2018-11-10] MEDS: NON-FORMULARY MEDICATION (Cyanocobalamin (Vitamin B-12) [B-12] 1,000 MCG) PO SCH (09:06)
[2018-11-10] MEDS: COZAAR PO SCH (09:06)
[2018-11-10] MEDS: MAXIPIME 2 GM in SODIUM CHLORIDE 100 ML IV SCH ×2 (09:06→20:50)
[2018-11-10] MEDS: MICRO-K CAP PO SCH (09:06)
[2018-11-10] MEDS: ANUCORT-HC RC SCH ×3 (09:06→20:50)
--- NOTE | 2018-11-10 09:06 | PCM.PROG ---
Attending Provider: ATTENDING PROVIDER: Dr. MICKEY SANDS DATE OF SERVICE: 11/10/18 SUBJECTIVE: This 68 year old WHITE/ F was hospitalized 11/08/18 with symptomatic anemia. She has continued to bleed due to hemorrhoids but much less amount. Hemoglobin and hematocrit are stable. She has received 4 units in past two weeks due to anemia. Will hold Eliquis. Discussed with the patient about atrial fibrillation complication. At the present time, the patient is in sinus rhythm. In fact, the patient has been in sinus rhythm ever since cardioversion. She understands the risks but prefers not to take Eliquis as long as her hemorrhoids are bleeding. We will have the patient seen by the general surgeon. The patient looks much better and hydration status is improved. REVIEW OF SYSTEMS: CONSTITUTIONAL: No night sweats. No fatigue, malaise, lethargy. No fever or chills. HEENT: Eyes: No visual changes. No eye pain. No eye discharge. ENT: No runny nose. No epistaxis. No sinus pain. No odynophagia. No congestion. RESPIRATORY: No cough, no congestion. No hemoptysis. No shortness of breath. CARDIOVASCULAR: No angina symptoms. No CHF symptoms. No atypical chest pain for CAD. No palpitations. No orthopnea.. GASTROINTESTINAL: No abdominal pain. No nausea or vomiting. No diarrhea or constipation. No hematemesis. No hematochezia. GENITOURINARY: No urgency. No frequency. No dysuria. No hematuria. No obstructive symptoms. No discharge. No pain. No significant abnormal bleeding. MUSCULOSKELETAL: No musculoskeletal pain; no joint swelling. NEUROLOGICAL: Awake, alert, oriented to time, place and person. No headache. No neck pain. No syncope. No seizures. No dizziness. PSYCHIATRIC: Not anxious. No depression. No suicidal thoughts. No homicidal thoughts. SKIN: No rash. No lesions. No wounds. ENDOCRINE: No unexplained weight loss. No weight gain. HEMATOLOGIC/LYMPHATIC: No anemia. No purpura. No petechiae. No prolonged or excessive bleeding. No palpable lymph nodes. PHYSICAL EXAMINATION: GENERAL: The patient is awake, alert and oriented, sitting in chair in no distress. VITAL SIGNS: Temperature 97.9 F, Pulse 61, Respiratory Rate 19, BP 111/57, Pulse Ox 97% HEENT: Head normocephalic, atraumatic. Eyes: Extraocular muscles are intact. Pupils are equal, round and reactive to light and accommodation. Ears: No lesions. Nose appeared normal. Throat: No exudate or erythema. NECK: Supple. No JVD, no carotid bruit. No lymphadenopathy or thyromegaly. LUNGS: Clear to auscultation. Percussion note normal. Chest symmetrical. HEART: S1, S2, no S3. Grade II/ systolic murmur in precordial area. No cyanosis or clubbing. No ascites. Pulses: Dorsalis pedis and posterior tibial pulses +1 to +2 both sides. ABDOMEN: Soft. Non-tender. Bowel sounds active. No CVA tenderness. No mass felt. EXTREMITIES: No edema. Full range of motion of all extremities, equal. NEUROLOGIC: No focal deficit. Cranial nerves II through XII are grossly intact. No headache, no double vision or headache. SKIN: Warm and dry. Intact. Turgor-normal. LYMPHATIC: No palpable lymph nodes/no lymphedema. MUSCULOSKELETAL: Normal joints with no swelling. Muscle tone is normal. LAB REVIEW: 11/10/18 04:45 11/10/18 04:45 11/10/18 04:45: Sodium 137.4, Potassium 3.79, Chloride 102.0, Carbon Dioxide 28.1, Anion Gap 11.09, BUN 27.2 H, Creatinine 0.90, Estimated GFR (MDRD) 62.00, BUN/Creatinine Ratio 30.22, Glucose 127.4 H, Calcium 8.70, Total Bilirubin 1.38 H, AST 18.2, ALT 9.7, Alkaline Phosphatase 119.6, Total Protein 6.11 L, Albumin 2.95 L, Globulin 3.16, Albumin/Globulin Ratio 0.93 11/10/18 04:45: PT 13.8 H, INR 1.39 11/10/18 04:45: WBC 10.72 H, RBC 3.68 L, Hgb 9.2 L, Hct 30.5 L, MCV 82.9, MCH 25.0 L, MCHC 30.2 L, RDW Coeff of Jessica 17.3 H, Plt Count 235, Immature Gran % ( Auto) 1.1, Neut % (Auto) 76.6, Lymph % (Auto) 10.4, [place] % (Auto) 9.9, Eos % ( Auto) 1.7, Baso % (Auto) 0.3, Immature Gran # (Auto) 0.1, Neut # (Auto) 8.2 H, Lymph # (Auto) 1.1, [place] # (Auto) 1.1, Eos # (Auto) 0.2, Baso # (Auto) 0.0 ASSESSMENT: 1. Hemorrhoidal bleeding with anemia, symptomatic. Iron supplements are being given. 2. The patient in in sinus rhythm, is off Eliquis. PLAN: 1. Anticipate discharge tomorrow. 2. Continue to hold Eliquis. 3. Ferrous Sulfate b.i.d. Plan and coordination of the patient's care discussed in the presence of Mangle Roller and nurse. CONDITION: Stable SCRIBED BY: DK JOEL Campaign Management Specialist scribed while in presence of service performed by Dr. MICKEY SANDS on 11/10/18 ([id number])
[2018-11-10] MEDS: NYSTOP POWDER TP SCH ×2 (09:07→21:05)
--- NOTE | 2018-11-10 12:04 | RS.OTINEVL ---
Subjective - Patient information Date of Evaluation: 11/10/18 Date of Arrival on Unit: 11/08/18 Admitted From:: Residential Diagnosis: Rectal bleeding, dyspnea PRECAUTIONS: At risk for falls, Incont./Incont. Usual Living Arrangement: Residential Living Arrangement Comments: pt was at [facility] getting rehab and IV antibiotics prior to last illness was living at home with her son Home Environment: Level/No stairs (at detention no stairs, pt at home has a few steps with HR.) Medical History: Hypertension, Arthritis Medical History Comments:: heart disease, hemorrhoids, rectal bleeding, OA, severe spinal stenosis C5-C6, Aortic valve replacement. 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 LATEX ALLERGY?: No Surgical History Comments:: Aortic valve replacement, Medications: see chart Subjective Information/ Patient Comments:: "I cannot wipe my back side." OT encouraged patient to get a tool to help with personal hygiene and patient reported she had one at home. - Level of function Abilities prior to this admission: Pt was recently sent to [facility] alf facility for rehabilitation. Pt was then sent to the hospital. Current Level of Function: Partially Dependent Comments: Pt appears to want people to help her complete her ADLS. Pt wants people to wipe her perianal area and says she cannot. Pt was encouraged to do the best she can and to get a tool to help her complete hygiene following a BM and cleaning herself in the shower. Pt urinated while sitting on the shower chair in the shower. A bucket was placed under her chair. Current Equipment Used at Home: rolling walker(rollator) Pain Assessment - Pain Pain Score: 0 Pain Location Body Site: Back Pain Alleviating Factors: Medication, Sitting Interventions - Objective Patient Orientation: Person, Place, Time, Situation Current Interventions: IV's, Telemetry Observation: Pt is very bossy and manipulative. Pt wants her self cares done for her. Pt is weak in BUE. Pt has difficulty with bed mobility and she is minimal assistance. Pt was able to wash her hair with both hands after setup. Pt washed her front pubic area independently after strong encouragement. Pt was encouraged to do the best she can with washing her perianal area. Pt said she couldn't reach it. Pt then was told to do her best. Pt was encouraged to buy a tool to help with washing and wiping her perianal area. Pt told OT that she had one at home. Pt was encouraged to have the tool at all times. Interventions - ROM Right Upper Extremity AROM: WFL's Left Upper Extremity AROM: Slight limitation Comments: Pt reports she has a LUE torn Rotator cuff. Pt did wash her hair with both - Strength Right Upper Extremity Strength: Mild Weakness Left Upper Extremity Strength: Mild Weakness - Sensation Right Upper Extremity Sensation: Intact/Normal Left Upper Extremity Sensation: Intact/Normal Balance - Sitting Balance Static Sitting Balance: Fair Dynamic Sitting Balance: Fair - Standing Balance Static Standing Balance: Poor Dynamic Standing Balance: Poor ADL Skills - Self Feeding Self Feeding: Independent - Grooming Grooming: Min Assist - Bathing Bathing UE: CGA Bathing LE: Max Assist - Dressing Dressing UE: Min Assist Dressing LE: Max Assist - Toilet Management Toileting Management: CGA Functional Mobility - Bed Mobility Rolling R/L: CGA Scooting: Min Assist Supine to Sit: Mod Assist Sit to Supine: Mod Assist - Transfers Sit to Stand: CGA Stand to Sit: CGA Stand Pivot Transfers: CGA - Ambulation Assistive Device Used: Rolling Walker Orthotic/Prosthetic Device: No Assistance needed with Ambulation: CGA, 1 person assist - Safety Awareness Safety Awareness: Good FLACO INDEX SCORE: . Additional Treatment Performed - Additional units charged ADL: 2 - Time with patient Length of Evaluation: 30 Total treatment time: 53 Activities Do you enjoy playing games?: No Would you be interested in leaving your room for activities?: No Would you enjoy group activities?: No Do you have difficulty with your vision?: No What types of things do you enjoy doing? Any Hobbies?: TV Patient Interests:: Watching Television, Listening to Music, Computer/Internet Assessment Problem List:: Decreased level of function, Weakness Rehab Potential: Good Further Therapy Indicated?: Yes Evaluation Complexity: HISTORY: Medium, EXAM OF BODY SYSTEMS: Medium, CLINICAL DECISION MAKING: Medium Short Term Goals - Goals GOAL 1: Pt to be walking to the [facility] over the toilet with RW. Goal to be met by: 11/14/18 GOAL 2: Pt to be independent with bed mobility. Goal to be met by: 11/14/18 GOAL 3: Pt to be able to wash her perianal area CGA. Goal to be met by: 11/14/18 GOAL 4: Pt to complete sink level ADLS CGA. Goal to be met by: 11/14/18 Assisted Goals GOAL 1: Pt to increase BUE strength to 4/5. Goal to be met by: 11/15/18 GOAL 2: Pt to be Mod-I with showering. Goal to be met by: 11/15/18 GOAL 3: Pt to complete sink level ADLS MOD-I. Goal to be met by: 11/15/18 Plan Plan of Care: Therapeutic EX, Neuromuscular Re-Educ, Therapeutic Activity, Self- Care/Home Management Frequency of Treatment: 1-2 X day, as tolerated Duration of Treatment: 1 Week Anticipated Discharge Destination: [facility] Treatment Diagnosis (ICD 10 Codes): M62.81 Muscle weakness, SOB, decreased activity tolerance. Has the Physician been added for Co-signature?: Yes
--- NOTE | 2018-11-10 13:24 | HP ---
DATE OF SERVICE: 11/08/18 REASON FOR HOSPITALIZATION: Symptomatic anemia. HISTORY OF PRESENT ILLNESS: This is a 68-year-old White/ female, who was recently discharged on , three to four days prior to her coming to the emergency room at [facility] from [place], [place]. She was discharged on with diagnosis of sepsis due to unspecified organisms, bacteremia, acute kidney injury, diarrhea presumed to be infectious origin, heme positive stools, aortic valve replacement, prosthesis Bovine. The patient was discharged to the group home where she had routine blood test done which revealed her hemoglobin to be 7.8 with hematocrit of 22. The patient was advised to be sent to the emergency room at [place] where the hemoglobin was noted to be 0.2 with hematocrit of 23. The patient has been short of breath and fatigued. she is on IV antibiotics for the past two weeks. she is being followed by Infectious Disease Specialist. The patient was advised hospitalization to which she agreed. It is to be noted that the patient's temperature was 99.6 in the emergency room. PAST MEDICAL/SURGICAL HISTORY: The patient has sepsis of unknown origin being treated with antibiotics, started at [facility] where she was hospitalized 10/17/18 to 11/03/18. Acute kidney injury bilateral Osteoarthritis of the knee Severe DJD spine Atrial fibrillation which cardioversion was done by Dr. Rodriguez Morbid obesity with BMI of 43 Diabetes mellitus Hypertension Chronic kidney disease, Stage 2 Aortic valve replacement, Bovine Dyslipidemia Metabolic syndrome Generalized anxiety disorder Dyslipidemia REVIEW OF SYSTEMS: CONSTITUTIONAL: Fatigue and weakness. No night sweats. No malaise, lethargy. No fever or chills. HEENT: Eyes: No visual changes. No eye pain. No eye discharge. ENT: No runny nose. No epistaxis. No sinus pain. No sore throat. No odynophagia. No ear pain. No congestion. RESPIRATORY: No cough, no congestion. No hemoptysis. Shortness of breath on exertion. CARDIOVASCULAR: No angina symptoms. No symptoms of coronary insufficiency.No CHF symptoms. No atypical chest pain for CAD. No palpitations. No PND. No orthopnea. GASTROINTESTINAL: Appetite is not that good. The patient has had hemorrhoidal bleeding for the past several days. Hemorrhoidal bleeding was also present in the past during hospitalization at [facility]. No abdominal pain. No nausea or vomiting. No diarrhea or constipation. No hematemesis. No hematochezia. GENITOURINARY: No urgency. No frequency. No dysuria. No hematuria. No obstructive symptoms. No discharge. No pain. No significant abnormal bleeding. MUSCULOSKELETAL: No musculoskeletal pain. No joint swelling. No arthritis. NEUROLOGICAL: No headache. No neck pain. No syncope. No seizures. No dizziness. PSYCHIATRIC: Not anxious. No depression. No suicidal thoughts. No homicidal thoughts. SKIN: No rash. No lesions. No wounds. ENDOCRINE: No unexplained weight loss. No weight gain. HEMATOLOGIC/LYMPHATIC: No anemia. No purpura. No petechiae. No prolonged or excessive bleeding. No palpable lymph nodes. PERSONAL/FAMILY/SOCIAL HISTORY: The patient is , taken care of by the daughter. Nonsmoker. No alcohol abuse. She is , lives by herself in [place]. MEDICATIONS: Eliquis 5 mg twice a day Atorvastatin 40 mg p.o. daily Maxipime 2 gm q.12hr Fenofibrate 145 mg daily Lasix 20 daily Gabapentin 300 mg at bedtime Heparin Flush to PICC line Hydrocodone 7.5/325 q.6 p.r.n. Hydrocortisone Analpram/Pramoxine cream twice a day Losartan 50 mg p.o. daily Metoprolol 25 mg p.o. daily Pantoprazole 40 mg p.o daily Potassium 10 mEq daily Probiotic 250 mg twice a day Zanaflex twice a day ALLERGIES: PENICILLIN, SULFA PHYSICAL EXAMINATION: GENERAL: The patient is oriented to time, place and person, looks somewhat dry. Skin is dry. Mucous membranes dry. VITAL SIGNS: Temperature 98.6, pulse 80, respiratory rate 16, BP 117/60, pulse ox 95%. Looks pale. HEENT: Head normocephalic, atraumatic. Eyes: Extraocular muscles are intact. Pupils are equal, round and reactive to light and accommodation. Ears: No lesions. Nose appeared normal. Throat: No exudate or erythema. NECK: Supple. No JVD, no carotid bruit. No lymphadenopathy or thyromegaly. LUNGS: Decreased breath sounds bilaterally. Clear to auscultation. Percussion note normal. Chest symmetrical. HEART: S1, S2, Grade II/ systolic murmur. Ejections aortic area and precordial area. No murmurs. No cyanosis or clubbing. No ascites. Pulses: Dorsalis pedis and posterior tibial pulses +1 bilaterally. Trace pitting edema. ABDOMEN: Soft. Nontender. Bowel sounds active. No CVA tenderness. No mass felt. EXTREMITIES: Trace pitting edema. Full range of motion of all extremities, equal. NEUROLOGIC: No focal deficit. Cranial nerves II through XII are grossly intact. No headache, no double vision or headache. SKIN: Dry. Intact. Turgor - normal. LYMPHATIC: No palpable lymph nodes/no lymphedema. MUSCULOSKELETAL: Normal joints with no swelling. Muscle tone is normal. Hemoglobin 8.2, hematocrit 27, WBC 11,000, normal differential. Creatinine 1, BUN 35, potassium 4.7, glucose 130, liver profile negative. ASSESSMENT: 1. ANEMIA LIKELY FROM BLOOD LOSS OF HEMORRHOIDS. 2. RECENT HISTORY OF SEPSIS BEING TREATED WITH CEFEPIME. 3. HISTORY OF ACUTE KIDNEY INJURY RECENTLY. 4. HISTORY OF ATRIAL FIBRILLATION ON ELIQUIS. CARDIOVERSION DONE BY DR. RODRIGUEZ 5. AORTIC VALVE REPLACEMENT, BOVINE VALVE 6. CHRONIC KIDNEY DISEASE, STAGE 2 7. MORBID OBESITY WITH BMI OF 43 8. SEVERE DJD OF LUMBAR SPINE 9. 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 DIABETES MELLITUS TYPE 2 11. HYPERTENSION 12. METABOLIC SYNDROME 13. GENERALIZED ANXIETY DISORDER PLAN: 1. The patient was given 2 units of packed red cells at [facility]. Will type and crossmatch 2 units as the patient is symptomatic from anemia. 2. The patient has so far shown sinus rhythm with history of two units at [facility] and two units at [place]. 3. Will hold Eliquis. The patient is reluctant to take Eliquis anyway. 4. The patient is found to have paroxysmal atrial fibrillation and discussed with the patient again but the patient insists that she did not have any atrial fibrillation after cardioversion, has never felt palpitations. 5. Continue Cefepime. 6. Continue all the rest of the medications. 7. Will have to refer the patient to fix her hemorrhoids. CONDITION: So far stable. TIME SPENT: More than 70 minutes. [facility]
[2018-11-10] MEDS: NEURONTIN PO SCH (20:49)
[2018-11-10] MEDS: NYSTATIN ORAL SUSP PO SCH ×2 (20:50→21:10)
[2018-11-11] MEDS: LASIX TAB PO SCH (06:17)
[2018-11-11] MEDS: FERROUS SULFATE PO SCH ×2 (06:17→16:35)
[2018-11-11] MEDS: PROTONIX PO SCH (06:17)
[2018-11-11] MEDS: NYSTATIN ORAL SUSP PO SCH ×5 (06:19→23:25)
[2018-11-11] MEDS: NORCO 7.5-325 PO PRN ×3 (08:27→21:03)
[2018-11-11] MEDS: NYSTOP POWDER TP SCH ×2 (09:35→21:00)
[2018-11-11] MEDS: LIPITOR PO SCH (09:36)
[2018-11-11] MEDS: MICRO-K CAP PO SCH (09:36)
[2018-11-11] MEDS: COZAAR PO SCH (09:36)
[2018-11-11] MEDS: FLORASTOR PO SCH ×2 (09:37→21:03)
[2018-11-11] MEDS: ZANAFLEX PO SCH ×2 (09:37→21:02)
[2018-11-11] MEDS: MAXIPIME 2 GM in SODIUM CHLORIDE 100 ML IV SCH ×2 (09:37→20:59)
[2018-11-11] MEDS: VITAMIN D PO SCH (09:37)
[2018-11-11] MEDS: NON-FORMULARY MEDICATION (Cyanocobalamin (Vitamin B-12) [B-12] 1,000 MCG) PO SCH ×2 (09:41→10:07)
[2018-11-11] MEDS: ANUCORT-HC RC SCH ×2 (09:45→21:02)
[2018-11-11] MEDS: LOVENOX SUBCUT SCH ×2 (10:43→21:05)
[2018-11-11] MEDS: CLOTRIMAZOLE TROCHE MUCOUSMEMB SCH ×3 (13:19→22:19)
[2018-11-11] MEDS: NEURONTIN PO SCH (21:02)
[2018-11-12] MEDS: NORCO 7.5-325 PO PRN ×3 (03:14→19:25)
[2018-11-12] MEDS: FERROUS SULFATE PO SCH ×2 (06:21→17:36)
[2018-11-12] MEDS: PROTONIX PO SCH (06:22)
[2018-11-12] MEDS: LASIX TAB PO SCH (06:22)
[2018-11-12] MEDS: CLOTRIMAZOLE TROCHE MUCOUSMEMB SCH ×3 (06:22→13:29)
[2018-11-12] MEDS: NYSTATIN ORAL SUSP PO SCH ×4 (06:25→20:53)
[2018-11-12] MEDS: ANUCORT-HC RC SCH ×2 (08:25→20:49)
[2018-11-12] MEDS: ZANAFLEX PO SCH ×2 (08:32→20:52)
[2018-11-12] MEDS: COZAAR PO SCH (08:32)
[2018-11-12] MEDS: MICRO-K CAP PO SCH ×2 (08:32→17:36)
[2018-11-12] MEDS: FLORASTOR PO SCH ×2 (08:32→20:52)
[2018-11-12] MEDS: VITAMIN D PO SCH (08:32)
[2018-11-12] MEDS: LOVENOX SUBCUT SCH ×2 (08:33→20:50)
[2018-11-12] MEDS: LIPITOR PO SCH (08:33)
[2018-11-12] MEDS: NON-FORMULARY MEDICATION (Cyanocobalamin (Vitamin B-12) [B-12] 1,000 MCG) PO SCH (08:37)
[2018-11-12] MEDS: NYSTOP POWDER TP SCH ×2 (08:38→20:53)
[2018-11-12] MEDS: MAXIPIME 2 GM in SODIUM CHLORIDE 100 ML IV SCH ×2 (12:45→20:49)
[2018-11-12] MEDS: NEURONTIN PO SCH (20:52)
[2018-11-13] MEDS: NORCO 7.5-325 PO PRN ×2 (03:58→09:09)
[2018-11-13 04:50] VITALS: TEMP 98.6
[2018-11-13] MEDS: LASIX TAB PO SCH (05:34)
[2018-11-13] MEDS: FERROUS SULFATE PO SCH (05:34)
[2018-11-13] MEDS: PROTONIX PO SCH (05:34)
[2018-11-13] MEDS: NYSTATIN ORAL SUSP PO SCH ×3 (05:35→10:57)
[2018-11-13] MEDS ORDERED: LASIX IVP STA (08:05)
[2018-11-13] MEDS: MAXIPIME 2 GM in SODIUM CHLORIDE 100 ML IV SCH (08:49)
[2018-11-13] MEDS: COZAAR PO SCH (08:50)
[2018-11-13] MEDS: LIPITOR PO SCH (08:50)
[2018-11-13] MEDS: ZANAFLEX PO SCH (08:50)
[2018-11-13] MEDS: VITAMIN D PO SCH (08:50)
[2018-11-13] MEDS: MICRO-K CAP PO SCH (08:51)
[2018-11-13] MEDS: FLORASTOR PO SCH (08:52)
[2018-11-13] MEDS: NON-FORMULARY MEDICATION (Cyanocobalamin (Vitamin B-12) [B-12] 1,000 MCG) PO SCH (08:55)
[2018-11-13] MEDS: NYSTOP POWDER TP SCH (09:01)
[2018-11-13] MEDS: LOVENOX SUBCUT SCH (09:02)
--- NOTE | 2018-11-13 10:45 | PCM.PROG ---
Attending Provider: ATTENDING PROVIDER: Dr. MICKEY MCLAUGHLIN This patient is seen with Debora Guerrero, Nurse Practitioner. DATE OF SERVICE: 11/13/18 SUBJECTIVE: This 68 year old WHITE/ F was hospitalized 11/08/18. The patient is sitting in the chair resting comfortably. Hemoglobin has been stable. The patient is no longer symptomatic. She has appointment with Dr. Pradhan on Tuesday for hemorrhoids. Will restart Eliquis with repeat CBC on Tuesday. She will be discharged back to [facility] for rehabilitation. REVIEW OF SYSTEMS: CONSTITUTIONAL: Weakness. No night sweats. No fatigue, malaise, lethargy. No fever or chills. HEENT: Eyes: No visual changes. No eye pain. No eye discharge. ENT: No runny nose. No epistaxis. No sinus pain. No odynophagia. No congestion. RESPIRATORY: No cough, no congestion. No hemoptysis. No shortness of breath. CARDIOVASCULAR: No angina symptoms. No CHF symptoms. No atypical chest pain for CAD. No palpitations. No orthopnea.. GASTROINTESTINAL: No abdominal pain. No nausea or vomiting. No diarrhea or constipation. No hematemesis. No hematochezia. GENITOURINARY: No urgency. No frequency. No dysuria. No hematuria. No obstructive symptoms. No discharge. No pain. No significant abnormal bleeding. MUSCULOSKELETAL: No musculoskeletal pain; no joint swelling. NEUROLOGICAL: Awake, alert, oriented to time, place and person. No headache. No neck pain. No syncope. No seizures. No dizziness. PSYCHIATRIC: Not anxious. No depression. No suicidal thoughts. No homicidal thoughts. SKIN: No rash. No lesions. No wounds. ENDOCRINE: No unexplained weight loss. No weight gain. HEMATOLOGIC/LYMPHATIC: Anemia. No purpura. No petechiae. No prolonged or excessive bleeding. No palpable lymph nodes. PHYSICAL EXAMINATION: GENERAL: The patient is awake, alert and oriented, sitting in chair in no distress. VITAL SIGNS: Temperature 98.6 F, Pulse 93, Respiratory Rate 18, BP 155/83, Pulse Ox 94% HEENT: Head normocephalic, atraumatic. Eyes: Extraocular muscles are intact. Pupils are equal, round and reactive to light and accommodation. Ears: No lesions. Nose appeared normal. Throat: No exudate or erythema. NECK: Supple. No JVD, no carotid bruit. No lymphadenopathy or thyromegaly. LUNGS: Clear to auscultation. Percussion note normal. Chest symmetrical. HEART: S1, S2, no S3. Grade II/ systolic murmur. No cyanosis or clubbing. No ascites. Pulses: Dorsalis pedis and posterior tibial pulses +1 to +2 both sides. ABDOMEN: Soft. Non-tender. Bowel sounds active. No CVA tenderness. No mass felt. EXTREMITIES: +1 bilateral leg edema. Full range of motion of all extremities, equal. NEUROLOGIC: No focal deficit. Cranial nerves II through XII are grossly intact. No headache, no double vision or headache. SKIN: Not dry. Intact. Turgor-normal. LYMPHATIC: No palpable lymph nodes/no lymphedema. MUSCULOSKELETAL: Normal joints with no swelling. Muscle tone is normal. LAB REVIEW: 11/13/18 04:33 11/13/18 04:33 11/13/18 04:33: Sodium 138.5, Potassium 3.60, Chloride 102.3, Carbon Dioxide 28.9, Anion Gap 10.90, BUN 17.3 H, Creatinine 0.68, Estimated GFR (MDRD) 86.00, BUN/Creatinine Ratio 25.44, Glucose 123.3 H, Calcium 8.54, Total Bilirubin 0.93 , AST 18.5, ALT 9.2, Alkaline Phosphatase 112.4, Total Protein 6.36, Albumin 2.97 L, Globulin 3.39, Albumin/Globulin Ratio 0.87 11/13/18 04:33: WBC 9.57, RBC 3.71 L, Hgb 9.4 L, Hct 30.6 L, MCV 82.5, MCH 25.3 L, MCHC 30.7 L, RDW Coeff of Jessica 17.5 H, Plt Count 217, Immature Gran % (Auto) 0.6, Neut % (Auto) 74.3, Lymph % (Auto) 12.4, [place] % (Auto) 10.9 H, Eos % (Auto ) 1.6, Baso % (Auto) 0.2, Immature Gran # (Auto) 0.1, Neut # (Auto) 7.1 H, Lymph # (Auto) 1.2, [place] # (Auto) 1.0, Eos # (Auto) 0.2, Baso # (Auto) 0.0 11/12/18 08:55: Stl Occult Blood (IFOB) Positive, Stool Occult Blood #2 No specimen received, Stool Occult Blood #3 No specimen received 11/09/18 07:15: Stool Occult Blood #2 No specimen received ASSESSMENT: 1. Hemorrhoidal bleeding with anemia, symptomatic. Iron supplements are being given. 2. Atrial fibrillation - restart Eliquis. PLAN: 1. Will give extra 20 mg IV Lasix before discharge. 2. Discharge today. 3. Restart Eliquis. 4. CBC on Tuesday. 5. Appointment with Dr. Del Angel on 11/24. 6. Will see Dr. Pradhan on Tuesday. Plan and coordination of the patient's care discussed in the presence of Row Boss and nurse. CONDITION: Stable SCRIBED BY: DK JOEL Fermentologist scribed while in presence of service performed by Dr. Mclaughlin/Debora Guerrero APRN on 11/13/18 ([id number])
[2018-11-13] MEDS: ANUCORT-HC RC SCH (12:38)
--- NOTE | 2018-11-13 13:35 | PN ---
DATE OF SERVICE: 11/12/18 SUBJECTIVE: 68-year-old white female hospitalized with symptomatic anemia. The hemoglobin is 8.8, hematocrit 28, creatinine 0.5 with BUN of 19. The patient feels a lot better. She is practically asymptomatic. Hemorrhoids are not bleeding anymore. The patient is on Lovenox 60 mg twice a day. Again I discussed with her the Eliquis. She is considering now to be on Eliquis. The patient is going to be referred to a surgeon for her hemorrhoids. REVIEW OF SYSTEMS: CONSTITUTIONAL: No night sweats. No fatigue, malaise, lethargy. No fever or chills. HEENT: Eyes: No visual changes. No eye pain. No eye discharge. ENT: No runny nose. No epistaxis. No sinus pain. No sore throat. No odynophagia. No congestion. RESPIRATORY: No cough, no congestion. No hemoptysis. No shortness of breath. CARDIOVASCULAR: No angina symptoms. No CHF symptoms. No atypical chest pain for CAD. No palpitations. No PND. No orthopnea. GASTROINTESTINAL: No abdominal pain. No nausea or vomiting. No diarrhea or constipation. No hematemesis. No hematochezia. GENITOURINARY: No urgency. No frequency. No dysuria. No hematuria. No obstructive symptoms. No discharge. No pain. No significant abnormal bleeding. MUSCULOSKELETAL: No musculoskeletal pain; no joint swelling. NEUROLOGICAL: No headache. No neck pain. No syncope. No seizures. No dizziness. PSYCHIATRIC: Not anxious. No depression. No suicidal thoughts. No homicidal thoughts. SKIN: No rash. No lesions. No wounds. ENDOCRINE: No unexplained weight loss. No weight gain. HEMATOLOGIC/LYMPHATIC: No anemia. No purpura. No petechiae. No prolonged or excessive bleeding. No palpable lymph nodes. PHYSICAL EXAMINATION: V/S: Temperature 98.1, pulse 97, respiratory rate 20, BP 130/73, pulse ox 94%. HEENT: Head normocephalic, atraumatic. Eyes: Extraocular muscles are intact. Pupils are equal, round and reactive to light and accommodation. Ears: No lesions. Nose appeared normal. Throat: No exudate or erythema. NECK: Supple. No JVD, no carotid bruit. No lymphadenopathy or thyromegaly. LUNGS: Clear to auscultation. Percussion note normal. Chest symmetrical. HEART: S1, S2, no S3. No murmurs. No cyanosis or clubbing. No ascites. Pulses: Dorsalis pedis and posterior tibial pulses +1 to +2 bilaterally. ABDOMEN: Soft. Nontender. Bowel sounds active. No CVA tenderness. No mass felt. EXTREMITIES: No edema. Full range of motion of all extremities, equal. NEUROLOGIC: No focal deficit. Cranial nerves II through XII are grossly intact. No headache, no double vision or headache. SKIN: Not dry. Intact. Turgor - normal. LYMPHATIC: No palpable lymph nodes/no lymphedema. MUSCULOSKELETAL: Normal joints with no swelling. Muscle tone is normal. ASSESSMENT: ANEMIA SEEMS TO BE STABLE WITH NO FURTHER BLEEDING FROM HEMORRHOIDS. THE PATIENT THIS MORNING HAS GONE INTO ATRIAL FIBRILLATION. SHE WAS IN SINUS RHYTHM ALL ALONG SO THERE IS A NEED TO CONSIDER ELIQUIS NOW BECAUSE PREVIOUSLY WE THOUGHT THAT THE PATIENT HAD NO EVENTS OF ATRIAL FIBRILLATION IN THE PAST FOR THE LAST TWO TO THREE YEARS AFTER HER CARDIOVERSION. I DISCUSSED WITH THE PATIENT ABOUT THIS ATRIAL FIB SHE HAS NOW AND NOW SHE IS CONSIDERING TO BE ON ELIQUIS. WILL LET ME KNOW BY TOMORROW. THE PATIENT HAD MILD HYPOKALEMIA. WILL GIVE POTASSIUM SUPPLEMENTS. THE PATIENT'S CARDIOVASCULAR STATUS IS STABLE. CONDITION: Stable. TIME SPENT: More than 30 minutes. Plan and coordination of the patient's care discussed in the presence of nurse. JOSETTE
[2018-11-13 13:57] VITALS: BP 116/71
--- NOTE | 2018-11-13 14:31 | PN ---
DATE OF SERVICE: 11/11/18 SUBJECTIVE: 68-year-old white female hospitalized with symptomatic anemia. Hemoglobin is stable and rising. It is now 9.5, hematocrit 30.9. According to the patient the last 3 to 4 bowel movements she did not have any blood in the stool. The patient has declined to restart Eliquis. She says that she already had 4 units of packed red cells. Because of the chronic bleeding from her hemorrhoids accentuated by Eliquis, the patient is intelligent. She has been in sinus rhythm for the past few years ever since Dr. Rodriguez had cardioverted her. Considering sinus rhythm with no evidence for paroxysmal atrial fib and patient' s blood loss from bleeding hemorrhoids requiring 4 units total of packed red cells, 2 at [facility] and 2 at [place], agree with the patient that she should not be started on ELiquis. Will put her on Lovenox 60 q.12 for now. Further discussion will be held. Telemetry shows sinus rhythm. REVIEW OF SYSTEMS: CONSTITUTIONAL: No night sweats. No fatigue, malaise, lethargy. No fever or chills. HEENT: Eyes: No visual changes. No eye pain. No eye discharge. ENT: No runny nose. No epistaxis. No sinus pain. No sore throat. No odynophagia. No congestion. RESPIRATORY: No cough, no congestion. No hemoptysis. No shortness of breath. CARDIOVASCULAR: No angina symptoms. No CHF symptoms. No atypical chest pain for CAD. No palpitations. No PND. No orthopnea. GASTROINTESTINAL: No abdominal pain. No nausea or vomiting. No diarrhea or constipation. No hematemesis. No hematochezia. GENITOURINARY: No urgency. No frequency. No dysuria. No hematuria. No obstructive symptoms. No discharge. No pain. No significant abnormal bleeding. MUSCULOSKELETAL: No musculoskeletal pain; no joint swelling. NEUROLOGICAL: No headache. No neck pain. No syncope. No seizures. No dizziness. PSYCHIATRIC: Not anxious. No depression. No suicidal thoughts. No homicidal thoughts. SKIN: No rash. No lesions. No wounds. ENDOCRINE: No unexplained weight loss. No weight gain. HEMATOLOGIC/LYMPHATIC: No anemia. No purpura. No petechiae. No prolonged or excessive bleeding. No palpable lymph nodes. PHYSICAL EXAMINATION: VITAL SIGNS: Temperature 98.1, pulse 90, respiratory rate 20, blood pressure 140/80, pulse ox 93%. HEENT: Head normocephalic, atraumatic. Eyes: Extraocular muscles are intact. Pupils are equal, round and reactive to light and accommodation. Ears: No lesions. Nose appeared normal. Throat: No exudate or erythema. NECK: Supple. No JVD, no carotid bruit. No lymphadenopathy or thyromegaly. LUNGS: Decreased breath sounds but clear to auscultation. Percussion note normal. Chest symmetrical. HEART: S1, S2, no S3. No murmurs. No cyanosis or clubbing. No ascites. Pulses: Dorsalis pedis and posterior tibial pulses +1 to +2 bilaterally. ABDOMEN: Soft. Nontender. Bowel sounds active. No CVA tenderness. No mass felt. EXTREMITIES: No edema. Full range of motion of all extremities, equal. NEUROLOGIC: No focal deficit. Cranial nerves II through XII are grossly intact. No headache, no double vision or headache. SKIN: Not dry. Intact. Turgor - normal. LYMPHATIC: No palpable lymph nodes/no lymphedema. MUSCULOSKELETAL: Normal joints with no swelling. Muscle tone is normal. LABS: 9.8 hemoglobin, hematocrit 30. ASSESSMENT: 1. SYMPTOMATIC ANEMIA WITH GI BLOOD LOSS FROM HEMORRHOIDS, STABLE. 2. THE PATIENT DOESN'T HAVE ANY ATRIAL FIBRILLATION, SHE IS IN SINUS RHYTHM. 3. HYPERTENSION. 4. THE PATIENT IS BEING TREATED FOR SEPSIS OF UNKNOWN ORIGIN. PLAN: 1. Continue with antibiotics that she was started with Infectious disease. 2. Add Lovenox 60 mg q.12. CONDITION: Stable. TIME SPENT: More than 30 minutes. Plan and coordination of the patient's care discussed in the presence of nurse. JOSETTE
--- NOTE | 2018-11-14 08:18 | PN ---
DATE OF SERVICE: 11/08/18 SUBJECTIVE: This 68-year-old white female was hospitalized through the emergency room after concern about her hemoglobin/hematocrit being 7.822 in the shelter. She was sent to the emergency room where repeat hemoglobin/hematocrit was 8.2 with hematocrit of 24. The patient has symptomatic anemia with weakness, shortness of breath. She has just undergone treatment for unknown origin of sepsis. She was in the [facility] for nearly 4 to 5 days. She is on IV antibiotics at the present time and being followed by Infectious Disease. The rest of the blood tests CBC, CMP were practically within normal range. The patient has history of hemorrhoids. She had colonoscopy which revealed hemorrhoidal bleeding. That is the source of her blood loss. The patient will be given 2 units of packed red cells and very likely going to be discharged to the shelter provided her cardiovascular status stays stable. TIME SPENT: More than 30 minutes. Plan and coordination of the patient's care discussed in the presence of nurse. JOSETTE
--- NOTE | 2018-11-14 12:50 | PN ---
DATE OF SERVICE: 11/13/18 SUBJECTIVE: The patient was seen and examined with Nurse Practitioner. The patient's condition has improved. She is feeling better. No hemorrhoidal bleeding. Hgb and hct is stable. She is going to see Dr. Pradhan as an outpatient for hemorrhoids. Discussed with her that atrial fibrillation has returned. Now she is agreeable for Eliquis and started on 5mg twice a day and monitor and hgb and hct periodically. The patient is strongly advised to followup with [place] physician, infectious disease specialist and then we are going to continue Cefepime orders given. CONDITION: Stable. TIME SPENT: More than 30 minutes. Plan and coordination of the patient's care discussed in the presence of nurse. JOSETTE
--- NOTE | 2018-11-14 13:17 | DS ---
DATE OF SERVICE: 11/13/18 FINAL DIAGNOSIS: 1. Symptomatic anemia transfused two units 11/09/18 etiology multifunctional 2. Abnormal echo 11/13/18 possible tricuspid vegetation-repeat echo 11/14/18 at 230pm, [facility] 3. Rectal bleeding 4. Hemorrhoids 5. Dyspnea 6. Osteoarthritis 7. Depression 8. GERD 9. 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 left atrial cavity 27.Mildly dilated. Mild mitral valve regurgitation. No masses or vegetation seen. 28.Nonsmoker LAST VITALS: Temperature 98.6, pulse 93, respiratory rate 18, blood pressure 155/83 and pulse ox 94%. DISCHARGE INSTRUCTIONS: Discharge to [facility] today 11/13/18. Vital signs daily for one week, then weekly. repeat CBC and CMP on TuesdayNovember 15. Repeat Labs as ordered by Dr. Del Angel CBC, CMP, SED rate and CRP weekly on Mondays. CBC and CMP monthly. Lipids, TSH every 6 months. PT/OT evaluation. Skin care/Decubitus precautions as needed. Patient to be seen on retirement rounds by Debora Guerrero APRN in 7-10 days. An outpatient appointment for a 2D echo as been scheduled for tomorrow November 14. Please arrive to the heart Center at [facility] at 230pm. Referral to Dr. Pradhan for hemorrhoids/ rectal bleeding on November 15 at 130pm. Followup appt with Dr. Del Angel on November 24 at 10AM. MEDICATIONS AT DISCHARGE: Tylenol 650mg PO Q 4 hours PRN [place] 7.5-325one tablet PO Q 6 hours PRN Eliquis 5mg PO twice a day Lipitor 40mg PO daily Vitamin D 1,000 unit PO daily Ferrous sulfate 324mg PO twice a day Fenofibrate 145mg PO daily Lasix 20mg PO QDAC Neurontin 300mg PO bedtime Heparin Flush 30 units IVF twice a day Analpram HC 2.5% cream 30gram RC twice a day scheduled Chloride 100mls at 100mls/hour Q 12 hours scheduled Cozaar 50mg Po daily Vitamin B12 1,000mcg Po daily Nystop powder 1application TP twice a day Protonix 40mg PO QDAC Micro K Cap 20meq PO twice a day Florastor 250mg PO twice a day Saline flush 1 syr IVF twice a day Zanaflex 2mg PO twice a day ALLERGIES: Penicillins Sulfa NEW PRESCRIPTIONS: Clotrimazole 10mg Lozenge three times a day, for seven days. Place in mouth, allow to slowly dissolved over 15-30minutes. Ferrous Sulfate 324mg Po twice a day with meals. Take one tablet by mouth with meals twice a day. DISCONTINUED MEDICATIONS: Metoprolol Tartrate 25mg PO daily PRN DIET INSTRUCTIONS: Resume regular diet with regular consistency and thin liquids. ACTIVITY: Up to dining room for meals May participate in retirement activities SMOKING: Nonsmoker DISEASE SPECIFIC EDUCATION: Anemia Rectal Bleeding Pain Management Patient given handout with printed information on follow up appointment. Continue IV antibiotics as ordered by Dr. Del Angel [facility]: Joann Michael was hospitalized because of symptomatic anemia. She was given 2 units of packed red cells. Her hgb and hct has stayed stable with no evidence of GI bleed through her hemorrhoids for past two days prior to discharge. She was on Lovenox. The patient thought to have sinus rhythm since Dr. Rodriguez had cardioverted but during the monitoring period in the hospital the patient was noted to have atrial fibrillation on the 4th day of hospital which stayed more than 24 hours. After long discussion it was decided that the patient needs to be continued on Eliquis and she is going to be referred to Dr. Pradhan for her hemorrhoids to be taken care of . The patient strongly advised to have followup with infectious disease specialist at [facility]. She has an appointment and advised to keep it. The retirement was instructed to make sure that the patient is taken for all of her clinical science consultant appointments. Nursing Homes are known not to take them for followup and never to let the primary care know about it. I had warned the patient about it. CONDITION: Stable. CODE STATUS: Full Code TIME SPENT: More than 60 minutes. ADDENDUM: The patient had 2DM Mode echo done before her discharge because of louder systolic murmur than usual that she had systolic ejection murmur a few years ago and continued low grade fever with history of sepsis of nonspecified etiology which is the reason the echo was repeat. Echo showed evidence of vegetation of the tricuspid valve level. Dr. Moreno was called who had read ELZA discussed with him and will repeat the Echo 2DM Mode at [facility], they have previous couple of echos done on this patient. Dr. Frazier was also notified. The patient was discharged to the retirement as her more or less cardiovascular status is stable. She is on Cefepime which should be continued. Overall condition is stable with improvement in her appetite. Dr. Pradhan is to see her three days after discharge and Dr. Frazier to see her 11/24/18 which should be made earlier with evidence of vegetations. Size of vegetation is less than a centimeter. MTDD
--- NOTE | 2018-11-14 13:29 | PN ---
11/08/18: Level 5 11/09/18: Intermediate 11/10/18: Intermediate 11/11/18: Intermediate 11/12/18: Intermediate 11/13/18: D as in discharge MTDD
--- NOTE | 2018-11-15 12:29 | ECHO2D ---
Date of Exam: 11/13/18 Ordering Physician: DR. MICKEY SANDS Room #: 116 Reason for Echo: CARDIOMEGALY, ATRIAL FIBRILLATION, VALVULAR REPAIR--AORTIC 2017 M-Mode Normal Adult Results LV Dimensions Normal Adult Results AoV Opening excursions >1.6 1.6 LVEDD-base- 3.5-5.8 5.2 Ao root dimensions 2.0-3.7 3.4 LVESD-base- 3.1-4.6 L. Atrium dimensions 1.9-3.8 4.5 Post. Wall thickness 0.8-1.1 1.1 IV septum (thickness) 0.7-1.2 1.2 Post. Wall excursion 0.72-1.3 NORMAL Septal motion 0.8 Systolic motion R. Ventricular cavity 1.5-2.0 NORMAL LVEF 60% 50% Paradoxical septal wall motion NONE 2-D : MILDLY HYPOKINETIC SEPTUM NOTED--ECHOGENIC MASS FLOPPING IN RIGHT ATRIUM-- TRICUSPID VALVULAR ORIGIN NOTED--AORTIC PROSTHETIC VALVE FUNCTIONING AND LOOKING GOOD, NO EFFUSION, NO THROMBUS M-MODE: MV: NORMAL AV: NORMAL PROSTHETIC VALVE TV: VEGETATION NOTED PV: CHAMBER SIZE: ENLARGED LEFT ATRIAL CAVITY WALL MOTION: MILDLY HYPOKINETIC SEPTUM PERICARDIUM: NORMAL INTERPRETATION: 1. BORDERLINE LEFT VENTRICULAR HYPERTROPHY WITH ENLARGED LEFT ATRIAL CAVITY 2. VEGETATION NOTED ON TRICUSPID VALVE (1 CM SIZE) 3. MILDLY HYPOKINETIC SEPTUM (EJECTION FRACTION 50%) MTDD
== END 2018-11-13 16:05 | DRG 811 ==
LOC: ED 13:11 → MEDSURG B 16:17
PROVIDERS: ADMIT Internal Medicine; ATTEND Internal Medicine
DX: D64.9 Anemia, unspecified (principal); A41.9 Sepsis, unspecified organism; K92.1 Melena; Z68.41 Body mass index [BMI] 40.0-44.9, adult; K64.9 Unspecified hemorrhoids; K21.9 Gastro-esophageal reflux disease without esophagitis; K63.5 Polyp of colon; I10 Essential (primary) hypertension; I48.0 Paroxysmal atrial fibrillation; N18.2 Chronic kidney disease, stage 2 (mild); M47.9 Spondylosis, unspecified; M19.90 Unspecified osteoarthritis, unspecified site; F32.9 Major depressive disorder, single episode, unspecified; F41.1 Generalized anxiety disorder; G62.9 Polyneuropathy, unspecified; E78.5 Hyperlipidemia, unspecified; E66.01 Morbid (severe) obesity due to excess calories; E88.81 Metabolic syndrome and other insulin resistance; E87.6 Hypokalemia; R53.1 Weakness; R06.00 Dyspnea, unspecified; R19.7 Diarrhea, unspecified; R01.1 Cardiac murmur, unspecified; Z79.01 Long term (current) use of anticoagulants
CPT/HCPCS: 36415; 36430; 80053; 81001; 82272; 82962; 83540; 83550; 83690; 85014; 85018; 85025; 85610; 85651; 86140; 86850; 86900; 86922; 87040; 93005; 93010; 96360; 96361; 97802; 99284

== ENCOUNTER 2018-11-24 11:53 | Inpatient (IN) ==
[2018-11-24 12:41] VITALS: BMI 39.9
[2018-11-24] MEDS ORDERED: TYLENOL PO PRN (12:41)
[2018-11-24] MEDS ORDERED: NITROSTAT SL PRN (12:41)
[2018-11-24] MEDS ORDERED: ATROPINE SULFATE PFS IVP PRN (12:41)
[2018-11-24] MEDS ORDERED: VISTARIL INJ IM PRN (12:41)
[2018-11-24] MEDS ORDERED: DULCOLAX RC PRN (13:13)
[2018-11-24] MEDS ORDERED: CITRATE OF MAGNESIA PO PRN (13:13)
[2018-11-24] MEDS: NORCO 7.5-325 PO PRN ×2 (14:17→20:42)
--- NOTE | 2018-11-24 14:25 | DI ---
EXAM: CHEST FRONTAL AND LATERAL VIEWS HISTORY: Shortness of breath. COMPARISON: 11/08/2018 FINDINGS: Stable cardiomegaly. Previous cardiac valvular repair. Sternotomy wires and atherosclero sis. Left PICC ends over the cavoatrial junction. Chronic-appearing interstitial changes. No defin ite consolidated pneumonia or active congestive heart failure/fluid overload. No visible pneumothora x. Trace pleural effusions. IMPRESSION: 1. Cardiomegaly. No current evidence of congestive heart failure. There are trace bilateral pleura l effusions. No consolidated pneumonia.
[2018-11-24] MEDS: FERROUS SULFATE PO SCH (16:48)
[2018-11-24] MEDS: MAXIPIME 2 GM in SODIUM CHLORIDE 100 ML IV SCH ×2 (17:58→20:03)
[2018-11-24] MEDS: NEURONTIN PO SCH (20:45)
[2018-11-24] MEDS: ZANAFLEX PO SCH (20:45)
[2018-11-24] MEDS: ANUCORT-HC RC SCH (20:45)
[2018-11-24] MEDS: FLORASTOR PO SCH (20:45)
[2018-11-24] MEDS ORDERED: PRAMOXINE RC SCH (21:00)
[2018-11-24] MEDS ORDERED: NON-FORMULARY MEDICATION (Tizanidine Hcl [Zanaflex] 2 MG) PO SCH (21:00)
[2018-11-24] MEDS ORDERED: HYDROCORTISONE RC SCH (21:00)
[2018-11-25] MEDS: NORCO 7.5-325 PO PRN ×3 (02:55→18:13)
[2018-11-25] MEDS: PROTONIX PO SCH (06:13)
[2018-11-25] MEDS: LASIX TAB PO SCH (06:13)
[2018-11-25] MEDS ORDERED: LOVENOX SUBCUT SCH (09:00)
[2018-11-25] MEDS ORDERED: NON-FORMULARY MEDICATION (Cholecalciferol (Vitamin D3) [Vitamin D3] 1,000 UNIT) PO SCH (09:00)
[2018-11-25] MEDS ORDERED: NON-FORMULARY MEDICATION (Losartan Potassium 50 MG) PO SCH (09:00)
[2018-11-25] MEDS ORDERED: NON-FORMULARY MEDICATION (Atorvastatin Calcium [Atorvastatin Calcium] 40 MG) PO SCH (09:00)
[2018-11-25] MEDS ORDERED: NON-FORMULARY MEDICATION (Fenofibrate Nanocrystallized [Fenofibrate] 145 MG) PO SCH (09:00)
[2018-11-25] MEDS ORDERED: NYSTOP POWDER TP SCH (09:00)
[2018-11-25] MEDS: ASPIRIN EC PO SCH (09:05)
[2018-11-25] MEDS: MAXIPIME 2 GM in SODIUM CHLORIDE 100 ML IV SCH ×2 (09:05→20:43)
[2018-11-25] MEDS: VITAMIN D PO SCH (09:05)
[2018-11-25] MEDS: FERROUS SULFATE PO SCH ×2 (09:06→16:41)
[2018-11-25] MEDS: TRIGLIDE PO SCH (09:06)
[2018-11-25] MEDS: LIPITOR PO SCH (09:06)
[2018-11-25] MEDS: ZANAFLEX PO SCH ×2 (09:07→20:41)
[2018-11-25] MEDS: MICRO-K CAP PO SCH (09:07)
[2018-11-25] MEDS: COZAAR PO SCH (09:07)
[2018-11-25] MEDS: ANUCORT-HC RC SCH ×2 (09:09→20:42)
[2018-11-25] MEDS: FLORASTOR PO SCH ×2 (09:09→20:43)
[2018-11-25] MEDS: LOVENOX SUBCUT SCH (09:13)
[2018-11-25] MEDS: NON-FORMULARY MEDICATION (Cyanocobalamin (Vitamin B-12) [B-12] 1,000 MCG) PO SCH (11:07)
[2018-11-25] MEDS: NYSTOP POWDER TP SCH ×3 (12:52→20:41)
[2018-11-25] MEDS: TYLENOL PO PRN (15:02)
[2018-11-25] MEDS: NEURONTIN PO SCH (20:43)
[2018-11-26] MEDS: NORCO 7.5-325 PO PRN ×4 (00:10→18:33)
[2018-11-26] MEDS ORDERED: ROBITUSSIN DM SYRUP PO PRN (01:21)
[2018-11-26] MEDS: PROTONIX PO SCH (05:37)
[2018-11-26] MEDS: LASIX TAB PO SCH (05:37)
[2018-11-26] MEDS: NYSTOP POWDER TP SCH ×3 (08:55→20:43)
[2018-11-26] MEDS: COZAAR PO SCH (08:56)
[2018-11-26] MEDS: LIPITOR PO SCH (08:56)
[2018-11-26] MEDS: FLORASTOR PO SCH ×2 (08:56→20:43)
[2018-11-26] MEDS: ASPIRIN EC PO SCH (08:56)
[2018-11-26] MEDS: VITAMIN D PO SCH (08:56)
[2018-11-26] MEDS: MICRO-K CAP PO SCH (08:57)
[2018-11-26] MEDS: FERROUS SULFATE PO SCH ×2 (08:57→17:06)
[2018-11-26] MEDS: TRIGLIDE PO SCH (08:57)
[2018-11-26] MEDS: ZANAFLEX PO SCH ×2 (08:57→20:44)
[2018-11-26] MEDS: NON-FORMULARY MEDICATION (Cyanocobalamin (Vitamin B-12) [B-12] 1,000 MCG) PO SCH (08:58)
[2018-11-26] MEDS: ANUCORT-HC RC SCH ×2 (08:59→20:44)
[2018-11-26] MEDS: LOVENOX SUBCUT SCH (08:59)
[2018-11-26] MEDS: MAXIPIME 2 GM in SODIUM CHLORIDE 100 ML IV SCH ×2 (09:09→20:42)
[2018-11-26] MEDS: NEURONTIN PO SCH (20:43)
[2018-11-26] MEDS ORDERED: TORADOL IVP STA (23:05)
[2018-11-27] MEDS: NORCO 7.5-325 PO PRN ×3 (04:11→19:53)
[2018-11-27] MEDS: LASIX TAB PO SCH (05:47)
[2018-11-27] MEDS: PROTONIX PO SCH ×2 (05:47→16:59)
[2018-11-27] MEDS: MAXIPIME 2 GM in SODIUM CHLORIDE 100 ML IV SCH ×2 (09:14→20:20)
[2018-11-27] MEDS: VITAMIN D PO SCH (09:14)
[2018-11-27] MEDS: TYLENOL PO PRN (09:14)
[2018-11-27] MEDS: LIPITOR PO SCH (09:15)
[2018-11-27] MEDS: MICRO-K CAP PO SCH (09:15)
[2018-11-27] MEDS: FERROUS SULFATE PO SCH ×2 (09:16→16:58)
[2018-11-27] MEDS: ZANAFLEX PO SCH ×2 (09:17→20:21)
[2018-11-27] MEDS: TRIGLIDE PO SCH (09:17)
[2018-11-27] MEDS: COZAAR PO SCH (09:17)
[2018-11-27] MEDS: NYSTOP POWDER TP SCH ×3 (09:18→20:20)
[2018-11-27] MEDS: LOVENOX SUBCUT SCH (09:19)
--- NOTE | 2018-11-27 09:26 | PCM.PROG ---
Attending Provider: ATTENDING PROVIDER: Dr. MICKEY SANDS This patient is seen with Debora Guerrero, Nurse Practitioner. DATE OF SERVICE: 11/27/18 SUBJECTIVE: This 68 year old WHITE/ F was hospitalized 11/24/18. The patient is resting comfortably. She is eating well. Hgb is stable after receiving two units on 11/24/18. She reports pain on the right calf. eating well. REVIEW OF SYSTEMS: CONSTITUTIONAL: No night sweats. No fatigue, malaise, lethargy. No fever or chills. HEENT: Eyes: No visual changes. No eye pain. No eye discharge. ENT: No runny nose. No epistaxis. No sinus pain. No odynophagia. No congestion. RESPIRATORY: No cough, no congestion. No hemoptysis. No shortness of breath. CARDIOVASCULAR: No angina symptoms. No CHF symptoms. No atypical chest pain for CAD. No palpitations. No orthopnea.. GASTROINTESTINAL: No abdominal pain. No nausea or vomiting. No diarrhea or constipation. No hematemesis. No hematochezia. GENITOURINARY: No urgency. No frequency. No dysuria. No hematuria. No obstructive symptoms. No discharge. No pain. No significant abnormal bleeding. MUSCULOSKELETAL: No musculoskeletal pain; no joint swelling. Right calf pain. NEUROLOGICAL: Awake, alert, oriented to time, place and person. No headache. No neck pain. No syncope. No seizures. No dizziness. PSYCHIATRIC: Not anxious. No depression. No suicidal thoughts. No homicidal thoughts. SKIN: No rash. No lesions. No wounds. Pallor. ENDOCRINE: No unexplained weight loss. No weight gain. Leg edema. HEMATOLOGIC/LYMPHATIC: No anemia. No purpura. No petechiae. No prolonged or excessive bleeding. No palpable lymph nodes. PHYSICAL EXAMINATION: GENERAL: The patient is awake, alert and oriented, lying in bed in no distress. VITAL SIGNS: Temperature 97.6 F, Pulse 77, Respiratory Rate 18, BP 116/67, Pulse Ox 95% HEENT: Head normocephalic, atraumatic. Eyes: Extraocular muscles are intact. Pupils are equal, round and reactive to light and accommodation. Ears: No lesions. Nose appeared normal. Throat: No exudate or erythema. NECK: Supple. No JVD, no carotid bruit. No lymphadenopathy or thyromegaly. LUNGS: Diminished breath sounds. Clear to auscultation. Percussion note normal. Chest symmetrical. HEART: S1, S2, no S3. Grade II murmur. Paroxysmal atrial fibrillation. No cyanosis or clubbing. No ascites. Pulses: Dorsalis pedis and posterior tibial pulses +1 to +2 both sides. ABDOMEN: Soft. Non-tender. Bowel sounds active. No CVA tenderness. No mass felt. EXTREMITIES: Trace bilateral leg edema. Full range of motion of all extremities , equal. NEUROLOGIC: No focal deficit. Cranial nerves II through XII are grossly intact. No headache, no double vision or headache. SKIN: Not dry. Intact. Turgor-normal. LYMPHATIC: No palpable lymph nodes/no lymphedema. MUSCULOSKELETAL: Normal joints with no swelling. Muscle tone is normal. LAB REVIEW: 11/27/18 05:35 11/27/18 05:35 11/27/18 05:35: Sodium 136.2, Potassium 3.78, Chloride 99.2, Carbon Dioxide 29.8 , Anion Gap 10.98, BUN 20.4 H, Creatinine 0.96, Estimated GFR (MDRD) 57.00, BUN/ Creatinine Ratio 21.25, Glucose 142.4 H, Calcium 8.59, Total Bilirubin 1.00, AST 16.6, ALT 9.1, Alkaline Phosphatase 88.4, Total Protein 6.35, Albumin 3.11 L , Globulin 3.24, Albumin/Globulin Ratio 0.95 11/27/18 05:35: WBC 6.12, RBC 3.65 L, Hgb 9.4 L, Hct 31.1 L, MCV 85.2, MCH 25.8 L, MCHC 30.2 L, RDW Coeff of Jessica 17.2 H, Plt Count 194, Immature Gran % (Auto) 0.8, Neut % (Auto) 74.0, Lymph % (Auto) 13.1, [place] % (Auto) 9.3, Eos % (Auto) 2.5, Baso % (Auto) 0.3, Immature Gran # (Auto) 0.1, Neut # (Auto) 4.5, Lymph # ( Auto) 0.8, [place] # (Auto) 0.6, Eos # (Auto) 0.2, Baso # (Auto) 0.0 ASSESSMENT: Please see below. 1. Anemia 2. Bacteremia 3. Paroxysmal atrial fibrillation 4. Leg pain PLAN: 1. Bilateral venous scan this morning. Plan and coordination of the patient's care discussed in the presence of Parent Partner and nurse. SCRIBED BY: Elo ALVARADO scribed while in presence of service performed by Dr. Sands/Debora Guerrero APRN on 11/27/18 ([id number])
[2018-11-27] MEDS: ASPIRIN EC PO SCH (09:30)
[2018-11-27] MEDS: ANUCORT-HC RC SCH ×2 (09:37→20:21)
[2018-11-27] MEDS: FLORASTOR PO SCH ×2 (09:49→20:21)
[2018-11-27] MEDS: NON-FORMULARY MEDICATION (Cyanocobalamin (Vitamin B-12) [B-12] 1,000 MCG) PO SCH (10:50)
--- NOTE | 2018-11-27 11:07 | HP ---
DATE OF SERVICE: 11/24/18 HISTORY OF PRESENT ILLNESS: This is a 68-year-old White female who is a direct admit from [facility]. Hemoglobin 8.1 on 11/23. The patient is pale, short of breath and weak. PAST MEDICAL HISTORY: Abnormal echo 11/13/18 Rectal bleeding Hemorrhoids Dyspnea Osteoarthritis Depression GERD Dyslipidemia Hypertension Paroxysmal atrial fibrillation AVR 10/22 DJD REVIEW OF SYSTEMS: CONSTITUTIONAL: Positive for fever and fatigue. No night sweats. No malaise, lethargy. No chills. HEENT: Eyes: No visual changes. No eye pain. No eye discharge. ENT: No runny nose. No epistaxis. No sinus pain. No sore throat. No odynophagia. No ear pain. No congestion. RESPIRATORY: No cough, no congestion. No hemoptysis. No shortness of breath. CARDIOVASCULAR: No angina symptoms. No CHF symptoms. No atypical chest pain for CAD. No palpitations. No PND. No orthopnea. GASTROINTESTINAL: No abdominal pain. No nausea or vomiting. No diarrhea or constipation. No hematemesis. No hematochezia. GENITOURINARY: No urgency. No frequency. No dysuria. No hematuria. No obstructive symptoms. No discharge. No pain. No significant abnormal bleeding. MUSCULOSKELETAL: Positive for osteoarthritis pain. No joint swelling. . NEUROLOGICAL: No headache. No neck pain. No syncope. No seizures. No dizziness. PSYCHIATRIC: Not anxious. No depression. No suicidal thoughts. No homicidal thoughts. SKIN: No rash. No lesions. No wounds. ENDOCRINE: No unexplained weight loss. No weight gain. HEMATOLOGIC/LYMPHATIC: No anemia. No purpura. No petechiae. No prolonged or excessive bleeding. No palpable lymph nodes. PERSONAL/FAMILY/SOCIAL HISTORY: The patient is . Nonsmoker. No alcohol use. MEDICATIONS: (HOME) Hydrocortisone/Pramoxine 30 gm RC b.i.d. Apixaban 5 mg p.o. b.i.d. Cholecalciferol 1,000 unit p.o. daily Cyanocobalamin 1,000 mcg p.o. daily Micro-K 10 mEq p.o. daily Pantoprazole 40 mg p.o. daily Losartan 50 mg p.o. daily Gabapentin 300 mg p.o. bedtime Furosemide 20 mg p.o. daily Atorvastatin 40 mg p.o. daily Zanaflex 2 mg p.o. b.i.d. Tylenol 650 mg p.o.q.4h p.r.n. Saccharomyces Boulardii 250 mg p.o. b.i.d. Fenofibrate 145 mg p.o. daily Hydrocodone/Acetaminophen one each p.o. q.6h p.r.n. Ferrous Sulfate 324 mg p.o.b .i.d. with meal Magnesium Citrate 10 oz p.o. daily p.r.n. Bisacodyl 10 mg RC daily p.r.n. ALLERGIES: PENICILLINS, SULFA PHYSICAL EXAMINATION: GENERAL: The patient is awake, alert, oriented times three. VITAL SIGNS: Temperature 97.9, pulse 67, BP 106/63, respiratory rate 26, 02 sat 100. HEENT: Head normocephalic, atraumatic. Eyes: Extraocular muscles are intact. Pupils are equal, round and reactive to light and accommodation. Ears: No lesions. Nose appeared normal. Throat: No exudate or erythema. NECK: Supple. No JVD, no carotid bruit. No lymphadenopathy or thyromegaly. LUNGS: Decreased breath sounds. Clear to auscultation. Percussion note normal. Chest symmetrical. HEART: S1, S2, no S3. Grade II/ murmur. No cyanosis or clubbing. No ascites. Pulses: Dorsalis pedis and posterior tibial pulses +1 to +2 bilaterally. ABDOMEN: Soft. Nontender. Bowel sounds active. No CVA tenderness. No mass felt. EXTREMITIES: Trace edema. Full range of motion of all extremities, equal. NEUROLOGIC: No focal deficit. Cranial nerves II through XII are grossly intact. No headache, no double vision or headache. SKIN: Not dry. Intact. Turgor - normal. LYMPHATIC: No palpable lymph nodes/no lymphedema. MUSCULOSKELETAL: Normal joints with no swelling. Muscle tone is normal. Sodium 136, potassium 3.9, BUN 13.6, creatinine 0.67, glucose 127, total bilirubin 1.32, red blood cells 3.6, hemoglobin 8.9, hematocrit 30.4, platelets 256. Chest x-ray shows cardiomegaly, no evidence of congestive heart failure, trace bilateral effusion. UA is normal. ASSESSMENT: 1. ANEMIA - SYMPTOMATIC 2. SEPSIS (BACTEREMIA) - GEMELLA 3. ATRIAL FIBRILLATION - PAROXYSMAL 4. ABNORMAL ECHO 11/13/18 5. RECTAL BLEEDING 6. HEMORRHOIDS 7. DYSPNEA 8. OSTEOARTHRITIS 9. DEPRESSION 10. GERD 11. DYSLIPIDEMIA 12. HYPERTENSION 13. PAROXYSMAL ATRIAL FIBRILLATION 14. DJD 15. AVR 10/22 PLAN: 1. Admit 2. Continue all home medications except d/c Eliquis 3. Start Lovenox 120 mg SC daily 4. Type and crossmatch 2 units PRBCs today 5. Echocardiogram 6. CBC/CMP now and daily 7. Routine telemetry - no cardiac enzymes 8. UA TIME SPENT: More than 70 minutes. ADDENDUM: Per Debora: I did speak with Dr. Del Angel today and it does appear that the patient has not been on the recommended Cefepime for the positive blood cultures for Gemella since the . This is an error by the residential. Neither us nor Dr. Del Angel discontinued the antibiotics. They were supposed to be continued until 12/03/18. They have also failed to do weekly CBC , CRP, sed rate and send those to Dr. Del Angel. We will repeat those today and fax the results to Mer. She has been afebrile. I have received a note from Dr. Del Angel from her original recommendation which clearly states that she is to have at least 6 weeks of antibiotics from the first culture. If her sed rate and CRP continue to increase then the antibiotics need to be changed to Vancomycin and Gentamicin. We will repeat the sed rate and CRP again This has been discussed in detail with Dr. Del Angel. I spoke with her myself. At this point we have restarted the Cefepime to be given q.12hr IV and just as has previously been ordered and will evaluate when the CRP and SED rate are received. Per Dr. Mclaughlin: The patient was hospitalized because of the drop in the hemoglobin. Now it is 8.1. On admission it was discovered that the patient had stopped getting her antibiotic, Cefepime 11/17/18 in the residential until today it was done by mistake from the residential. Also the sed rate and CRP were not drawn. In fact when the patient ended up in Dr. Del Angel's office today, followup on sepsis, the patient practically had no records. Later on, nurse practitioner, Debora, talked to Dr. Del Angel and discussed the case. The vegetations were found at [facility]. Dr. Frazier indicated that vegetations or no vegetations if the patient's sed rate and CRP are the same, continue Cefepime. If they have gone up then the patient should be on Vancomycin and Gentamicin. The blood cultures needed to be drawn again before starting any antibiotics. The patient feels a lot better. Appetite has improved. She is practically afebrile. She has a loud systolic murmur throughout the precordium. No evidence of CHF or CAD on physical exam. PLAN: As mentioned above. If the sed rate and CRP are the same as before, continue Cefepime; if they are elevated, then discontinue Cefepime and put the patient on Gentamicin and Vancomycin. Again, the patient was discharged from [facility] around 11/13/18 and the patient was supposed to have Cefepime given with stop date of 12/03/18 but somehow the patient's Cefepime got discontinued in the residential on 11/17/18. No blood work as ordered by Dr. Frazier was done. The patient had office visit followup appointment with Dr. Del Angel on 11/24/18. JOSETTE
--- NOTE | 2018-11-27 14:17 | US ---
EXAM: Ultrasound venous Doppler right and left lower extermity HISTORY: Pain, swelling COMPARISON: Pain, swelling TECHNIQUE: Venous duplex ultrasound of the right and left lower extremity was performed using color, rangel-scale, and Doppler flow imaging. FINDINGS: There is normal color flow and compression of the right and left common femoral, greater s aphenous, profunda femoral, femoral, popliteal, peroneal, posterior tibial, and anterior tibial veins without evidence of intraluminal thrombus. Bilateral lower extremity subcutaneous edema. IMPRESSION: No right or left lower extremity deep venous thrombosis.
[2018-11-27] MEDS: NEURONTIN PO SCH (20:21)
[2018-11-28] MEDS: NORCO 7.5-325 PO PRN ×3 (02:04→18:00)
[2018-11-28] MEDS: LASIX TAB PO SCH (05:40)
[2018-11-28] MEDS: PROTONIX PO SCH ×2 (05:40→16:42)
--- NOTE | 2018-11-28 07:52 | PN ---
DATE OF SERVICE: 11/25/18 SUBJECTIVE: The patient is hospitalized with symptomatic anemia. The patient's hemoglobin again has dropped. So far she has received 6 units of packed red cells in the past six weeks. No evidence of active GI bleed. Previously Eliquis was started. This time Eliquis is going to be on hold because of continuous GI blood loss. The patient is agreeable. Complications of atrial fibrillation discussed. The patient is being treated for sepsis, etiology unknown but there was evidence of tricuspid vegetation last time she was hospitalized at [facility]. The patient is on Cefepime. The patient's sed rate was less than before, which was done yesterday. Report of CRP still pending. Last time CRP was 84, normal is up to 4.9. Date of the blood test was 11/13/18. PHYSICAL EXAMINATION: VITAL SIGNS: Temperature 98.7, pulse 88, respiratory rate 24, blood pressure 124 /68. Pulse ox 98%. HEENT: Head normocephalic, atraumatic. Eyes: Extraocular muscles are intact. Pupils are equal, round and reactive to light and accommodation. Ears: No lesions. Nose appeared normal. Throat: No exudate or erythema. NECK: Supple. No JVD, no carotid bruit. No lymphadenopathy or thyromegaly. LUNGS: Decreased breath sounds but clear to auscultation. Percussion note normal. Chest symmetrical. HEART: S1, S2, no S3. The patient had loud 3/6 systolic murmur precordial area , entire precordium. No cyanosis or clubbing. No ascites. Pulses: Dorsalis pedis and posterior tibial pulses +1 to +2 bilaterally. ABDOMEN: Soft. Nontender. Bowel sounds active. No CVA tenderness. No mass felt. EXTREMITIES: No edema. Full range of motion of all extremities, equal. NEUROLOGIC: No focal deficit. Cranial nerves II through XII are grossly intact. No headache, no double vision or headache. SKIN: Not dry. Intact. Turgor - normal. LYMPHATIC: No palpable lymph nodes/no lymphedema. MUSCULOSKELETAL: Normal joints with no swelling. Muscle tone is normal. PLAN: 1. Continue Cefepime after discussion with Infectious Disease Specialist. 2. Will monitor CBC and CMP. 3. Will do echocardiogram to reevaluate the vegetation. CONDITION: Otherwise stable. The patient is feeling better. TIME SPENT: More than 30 minutes. Plan and coordination of the patient's care discussed in the presence of nurse. JOSETTE
[2018-11-28] MEDS ORDERED: DECADRON 4 MG/ML SDV IM STA (08:01)
--- NOTE | 2018-11-28 08:35 | PN ---
DATE OF SERVICE: 11/26/18 SUBJECTIVE: The patient was seen and examined today. The patient says that she feels wonderful. REVIEW OF SYSTEMS: CONSTITUTIONAL: No night sweats. No fatigue, malaise, lethargy. No fever or chills. HEENT: Eyes: No visual changes. No eye pain. No eye discharge. ENT: No runny nose. No epistaxis. No sinus pain. No sore throat. No odynophagia. No congestion. RESPIRATORY: No cough, no congestion. No hemoptysis. No shortness of breath. CARDIOVASCULAR: No angina symptoms. No CHF symptoms. No atypical chest pain for CAD. No palpitations. No PND. No orthopnea. GASTROINTESTINAL: Appetite is improving. No abdominal pain. No nausea or vomiting. No diarrhea or constipation. No hematemesis. No hematochezia. No evidence of GI bleed. GENITOURINARY: No urgency. No frequency. No dysuria. No hematuria. No obstructive symptoms. No discharge. No pain. No significant abnormal bleeding. MUSCULOSKELETAL: No musculoskeletal pain; no joint swelling. NEUROLOGICAL: No headache. No neck pain. No syncope. No seizures. No dizziness. PSYCHIATRIC: Not anxious. No depression. No suicidal thoughts. No homicidal thoughts. SKIN: No rash. No lesions. No wounds. ENDOCRINE: No unexplained weight loss. No weight gain. HEMATOLOGIC/LYMPHATIC: No anemia. No purpura. No petechiae. No prolonged or excessive bleeding. No palpable lymph nodes. PHYSICAL EXAMINATION: GENERAL: The patient is oriented to time, place and person. HEENT: Head normocephalic, atraumatic. Eyes: Extraocular muscles are intact. Pupils are equal, round and reactive to light and accommodation. Ears: No lesions. Nose appeared normal. Throat: No exudate or erythema. NECK: Supple. No JVD, no carotid bruit. No lymphadenopathy or thyromegaly. LUNGS: Decreased breath sounds. Clear to auscultation. Percussion note normal. Chest symmetrical. HEART: S1, S2, no S3. Grade II to III/ systolic murmur all over the precordial area. No evidence of any endocarditis clinically. No cyanosis or clubbing. No ascites. Pulses: Dorsalis pedis and posterior tibial pulses +1 to +2 bilaterally. ABDOMEN: Soft. Nontender. Bowel sounds active. No CVA tenderness. No mass felt. EXTREMITIES: No edema. Full range of motion of all extremities, equal. NEUROLOGIC: No focal deficit. Cranial nerves II through XII are grossly intact. No headache, no double vision or headache. SKIN: Not dry. Intact. Turgor - normal. LYMPHATIC: No palpable lymph nodes/no lymphedema. MUSCULOSKELETAL: Normal joints with no swelling. Muscle tone is normal. LABS: The patient's CRP is back which is half of what it was nearly 1 to 2 weeks ago. The patient has shown improvement in the sed rate and remarkably improvement in CRP from previous readings. PLAN: 1. Will do stool for occult blood. 2. Will continue Cefepime. 3. Will do echo related to evaluate tricuspid valve vegetations. 4. The patient's hemoglobin/hematocrit is stable. 5. The patient declined any EGD or colonoscopy and this time she has declined to cut back on Eliquis. Complications of atrial fibrillation discussed but again complications of Eliquis discussed. Condition seems to be improving. TIME SPENT: More than 30 minutes. Plan and coordination of the patient's care discussed in the presence of nurse. JOSETTE
--- NOTE | 2018-11-28 08:39 | PN ---
DATE OF SERVICE: 11/27/18 SUBJECTIVE: The patient was seen and examined with the nurse practitioner. The patient is feeling a lot better, has discussed earlier yesterday the patient's sed rate and CRP are improving. She will be on Cefepime and I will have to do an echo to evaluate her tricuspid vegetation. The patient is feeling a lot better with a couple units of packed red cells. Condition is stable. TIME SPENT: More than 30 minutes. Plan and coordination of the patient's care discussed in the presence of nurse. JOSETTE
[2018-11-28] MEDS: NYSTOP POWDER TP SCH ×3 (09:00→20:41)
--- NOTE | 2018-11-28 09:07 | PCM.PROG ---
Attending Provider: ATTENDING PROVIDER: Dr. MICKEY SANDS This patient is seen with Debora Guerrero, Nurse Practitioner. DATE OF SERVICE: 11/28/18 SUBJECTIVE: This 68 year old WHITE/ F was hospitalized 11/24/18. Arthritis is flaring up this morning. Hgb is down to 9.1. The patient had large bowel movement yesterday. REVIEW OF SYSTEMS: CONSTITUTIONAL: No night sweats. No fatigue, malaise, lethargy. No fever or chills. HEENT: Eyes: No visual changes. No eye pain. No eye discharge. ENT: No runny nose. No epistaxis. No sinus pain. No odynophagia. No congestion. RESPIRATORY: No cough, no congestion. No hemoptysis. No shortness of breath. CARDIOVASCULAR: No angina symptoms. No CHF symptoms. No atypical chest pain for CAD. No palpitations. No orthopnea.. GASTROINTESTINAL: No abdominal pain. No nausea or vomiting. No diarrhea or constipation. No hematemesis. No hematochezia. GENITOURINARY: No urgency. No frequency. No dysuria. No hematuria. No obstructive symptoms. No discharge. No pain. No significant abnormal bleeding. MUSCULOSKELETAL: No musculoskeletal pain. Joint pain. NEUROLOGICAL: Awake, alert, oriented to time, place and person. No headache. No neck pain. No syncope. No seizures. No dizziness. PSYCHIATRIC: Not anxious. No depression. No suicidal thoughts. No homicidal thoughts. SKIN: No rash. No lesions. No wounds. Pallor. ENDOCRINE: No unexplained weight loss. No weight gain. HEMATOLOGIC/LYMPHATIC:Anemia. No purpura. No petechiae. No prolonged or excessive bleeding. No palpable lymph nodes. PHYSICAL EXAMINATION: GENERAL: The patient is awake, alert and oriented, sitting in chair in no distress. VITAL SIGNS: Temperature 98.9 F, Pulse 80, Respiratory Rate 18, BP 104/64, Pulse Ox 99% HEENT: Head normocephalic, atraumatic. Eyes: Extraocular muscles are intact. Pupils are equal, round and reactive to light and accommodation. Ears: No lesions. Nose appeared normal. Throat: No exudate or erythema. NECK: Supple. No JVD, no carotid bruit. No lymphadenopathy or thyromegaly. LUNGS: Clear to auscultation. Percussion note normal. Chest symmetrical. HEART: S1, S2, no S3. Grade II/IV murmurs. No cyanosis or clubbing. No ascites. Pulses: Dorsalis pedis and posterior tibial pulses +1 to +2 both sides. ABDOMEN: Soft. Non-tender. Bowel sounds active. No CVA tenderness. No mass felt. EXTREMITIES: Trace lower extremity edema. Full range of motion of all extremities, equal. NEUROLOGIC: No focal deficit. Cranial nerves II through XII are grossly intact. No headache, no double vision or headache. SKIN: Not dry. Intact. Turgor-normal. LYMPHATIC: No palpable lymph nodes/no lymphedema. MUSCULOSKELETAL: Normal joints with no swelling. Muscle tone is normal. LAB REVIEW: 11/28/18 05:00 11/28/18 05:00 11/28/18 05:00: Sodium 134.1 L, Potassium 4.49, Chloride 101.1, Carbon Dioxide 24.6, Anion Gap 12.89, BUN 26.0 H, Creatinine 0.94, Estimated GFR (MDRD) 59.00, BUN/Creatinine Ratio 27.65, Glucose 110.1 H, Calcium 8.43, Total Bilirubin 1.05 , AST 17.6, ALT 6.3, Alkaline Phosphatase 86.2, Total Protein 6.17 L, Albumin 3.02 L, Globulin 3.15, Albumin/Globulin Ratio 0.95 11/28/18 05:00: WBC 7.61, RBC 3.54 L, Hgb 9.1 L, Hct 31.8 L, MCV 89.8, MCH 25.7 L, MCHC 28.6 L, RDW Coeff of Jessica 17.7 H, Plt Count 77 L D, Immature Gran % (Auto ) 0.5, Neut % (Auto) 78.9, Lymph % (Auto) 11.7, [place] % (Auto) 7.0, Eos % (Auto) 1.8, Baso % (Auto) 0.1, Immature Gran # (Auto) 0.0, Neut # (Auto) 6.0, Lymph # ( Auto) 0.9, [place] # (Auto) 0.5, Eos # (Auto) 0.1, Baso # (Auto) 0.0, Plt Morphology Comment Decreased, Hypochromasia 1+, Anisocytosis Not present ASSESSMENT: Please see below. 1. Anemia 2. Bacteremia 3. Paroxysmal atrial fibrillation 4. Leg pain PLAN: 1. 1cc Decadron 2. Echo today Plan and coordination of the patient's care discussed in the presence of Side Seam Envelope Machine Operator and nurse. SCRIBED BY: Brisa ALVARADOist scribed while in presence of service performed by Dr. Sands/Debora Guerrero APRN on 11/28/18 ([id number])
[2018-11-28] MEDS: MAXIPIME 2 GM in SODIUM CHLORIDE 100 ML IV SCH ×2 (10:01→20:39)
[2018-11-28] MEDS: ANUCORT-HC RC SCH ×2 (10:02→20:41)
[2018-11-28] MEDS: FLORASTOR PO SCH ×2 (10:03→20:40)
[2018-11-28] MEDS: TRIGLIDE PO SCH (10:04)
[2018-11-28] MEDS: COZAAR PO SCH (10:04)
[2018-11-28] MEDS: ASPIRIN EC PO SCH (10:04)
[2018-11-28] MEDS: FERROUS SULFATE PO SCH ×2 (10:04→16:41)
[2018-11-28] MEDS: ZANAFLEX PO SCH ×2 (10:04→20:39)
[2018-11-28] MEDS: VITAMIN D PO SCH (10:05)
[2018-11-28] MEDS: MICRO-K CAP PO SCH (10:05)
[2018-11-28] MEDS: LIPITOR PO SCH (10:05)
[2018-11-28] MEDS: LOVENOX SUBCUT SCH (10:06)
[2018-11-28] MEDS: NON-FORMULARY MEDICATION (Cyanocobalamin (Vitamin B-12) [B-12] 1,000 MCG) PO SCH (11:47)
[2018-11-28] MEDS ORDERED: LINZESS PO ONE (14:46)
[2018-11-28] MEDS: NEURONTIN PO SCH (20:40)
[2018-11-29] MEDS: NORCO 7.5-325 PO PRN ×3 (03:39→21:53)
[2018-11-29] MEDS: PROTONIX PO SCH ×2 (05:35→17:11)
[2018-11-29] MEDS: LASIX TAB PO SCH (05:35)
[2018-11-29] MEDS: MAXIPIME 2 GM in SODIUM CHLORIDE 100 ML IV SCH ×2 (09:13→20:31)
[2018-11-29] MEDS: FERROUS SULFATE PO SCH ×2 (11:23→17:11)
[2018-11-29] MEDS: ZANAFLEX PO SCH ×2 (11:23→20:30)
[2018-11-29] MEDS: MICRO-K CAP PO SCH (11:24)
[2018-11-29] MEDS: ASPIRIN EC PO SCH (11:25)
[2018-11-29] MEDS: TRIGLIDE PO SCH (11:25)
[2018-11-29] MEDS: ANUCORT-HC RC SCH ×2 (11:25→20:31)
[2018-11-29] MEDS: VITAMIN D PO SCH (11:25)
[2018-11-29] MEDS: COZAAR PO SCH (11:26)
[2018-11-29] MEDS: LINZESS PO SCH (11:26)
--- NOTE | 2018-11-29 11:36 | US ---
EXAM: ULTRASOUND ABDOMEN COMPLETE HISTORY: Abdominal pain FINDINGS: Darden scale ultrasound and color Doppler was performed. Exam was described as technically difficult a nd limited secondary to body habitus and excessive gas within the bowel. The liver size was measured at 12.5 cm, within normal limits. The liver reveal no focal lesion or evidence of intrahepatic bilia ry dilatation. The main portal vein is patent and hepatopedal. The gallbladder has been removed. Common bile duct diameter was within normal limits at 0.39 cm. The visualized pancreas was within normal limits. The aorta and IVC were not adequately seen seconda ry to superimposed bowel gas. The splenic length was normal at 11 cm. The right kidney measured 9.8 cm and the left kidney 11.3 cm . No hydronephrosis or ascites. IMPRESSION: 1. Limited exam reveals post cholecystectomy state with no common bile duct dilatation. Other findi ngs as described.
[2018-11-29] MEDS: LIPITOR PO SCH (11:40)
[2018-11-29] MEDS: LOVENOX SUBCUT SCH (11:41)
[2018-11-29] MEDS: NON-FORMULARY MEDICATION (Cyanocobalamin (Vitamin B-12) [B-12] 1,000 MCG) PO SCH (12:22)
[2018-11-29] MEDS: NYSTOP POWDER TP SCH ×3 (12:37→21:07)
[2018-11-29] MEDS: FLORASTOR PO SCH ×2 (12:37→20:29)
--- NOTE | 2018-11-29 13:15 | PN ---
DATE OF SERVICE: 11/28/18 SUBJECTIVE: The patient was seen and examined with the nurse practitioner. The patient's medical condition is stable. She is feeling better. Hemoglobin is 9.1, hematocrit 31. There is no evidence of active GI bleed. 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 Video pictures were taken by me through my cell phone. I explained to the patient that I may send these pictures to infectious specialist , Dr. Del Angel and Dr. Ketan Moyer and may show it to a couple of other cardiologists and she agreed to that. During this conversation, cardiopulmonary tech and Sweta were present. TIME SPENT: More than 30 minutes. Plan and coordination of the patient's care discussed in the presence of nurse. JOSETTE
--- NOTE | 2018-11-29 14:34 | PN ---
DATE OF SERVICE: 11/29/18 SUBJECTIVE: The patient was seen and examined with the nurse practitioner. The patient has positive blood cultures - the lab thinks that it is contaminant when I talked to the lab about it as the patient may be growing bacteria from the vegetations she has in the tricuspid valve. The images done at [facility] were sent to Dr. Aceves who checked it and was amazed that there were definite vegetations he could see. He went back and reviewed the echo done at [facility] but none of them showed any vegetations according to him. According to him, the vegetations looked on the echo that I did and makes him feel that there is no need for ELZA. The images were also conveyed to Dr. Nubia Rincon, who is infectious disease following the patient. The patient is afebrile. All the reports are forwarded to Dr. Nubia Rincon. Until then we will continue Cefepime. She is to be continued until 12/03/18. The patient has been made aware of all of these happenings. TIME SPENT: More than 30 minutes. Plan and coordination of the patient's care discussed in the presence of nurse. JOSETTE
[2018-11-29] MEDS: TYLENOL PO PRN (20:29)
[2018-11-29] MEDS: NEURONTIN PO SCH (20:30)
[2018-11-30] MEDS: TYLENOL PO PRN ×2 (01:55→13:33)
[2018-11-30] MEDS: NORCO 7.5-325 PO PRN ×2 (04:17→10:47)
[2018-11-30] MEDS: PROTONIX PO SCH (05:50)
[2018-11-30] MEDS: LASIX TAB PO SCH (05:50)
[2018-11-30 05:54] VITALS: BP 141/82; TEMP 97.7
--- NOTE | 2018-11-30 08:40 | PCM.PROG ---
Attending Provider: ATTENDING PROVIDER: Dr. MICKEY SANDS DATE OF SERVICE: 11/30/18 SUBJECTIVE: This 68 year old WHITE/ F was hospitalized 11/24/18 with anemia, symptomatic. The patient has a history of sepsis from tricuspid valve vegetation which is being treated by Dr. Nubia Rincon, infectious disease specialist. She is afebrile. White blood count is normal. CRP is pending. Discussed with Nubia Rincon yesterday through Nurse Practitioner. Waiting for blood culture report, until then she wants to continue Cefepime. Continue Cefepime for 7 more days after being stopped on 11/22/18, instructed that to the alf. Dr. Moyer looked at video of 2DM mode echo and agrees with vegetation of tricuspid valve, it was missed on complete echo done at [facility] and he showed willingness to take over the patient. We will refer her to Dr. Moyer. REVIEW OF SYSTEMS: CONSTITUTIONAL: No night sweats. No fatigue, malaise, lethargy. No fever or chills. HEENT: Eyes: No visual changes. No eye pain. No eye discharge. ENT: No runny nose. No epistaxis. No sinus pain. No odynophagia. No congestion. RESPIRATORY: No cough, no congestion. No hemoptysis. No shortness of breath. CARDIOVASCULAR: No angina symptoms. No CHF symptoms. No atypical chest pain for CAD. No palpitations. No orthopnea.. GASTROINTESTINAL: No abdominal pain. No nausea or vomiting. No diarrhea or constipation. No hematemesis. No hematochezia. GENITOURINARY: No urgency. No frequency. No dysuria. No hematuria. No obstructive symptoms. No discharge. No pain. No significant abnormal bleeding. Hemorrhoidal bleeding just one time. MUSCULOSKELETAL: No musculoskeletal pain; no joint swelling. NEUROLOGICAL: Awake, alert, oriented to time, place and person. No headache. No neck pain. No syncope. No seizures. No dizziness. PSYCHIATRIC: Not anxious. No depression. No suicidal thoughts. No homicidal thoughts. SKIN: No rash. No lesions. No wounds. ENDOCRINE: No unexplained weight loss. No weight gain. HEMATOLOGIC/LYMPHATIC: No anemia. No purpura. No petechiae. No prolonged or excessive bleeding. No palpable lymph nodes. PHYSICAL EXAMINATION: GENERAL: The patient is awake, alert and oriented, in no distress. VITAL SIGNS: Temperature 97.7 F, Pulse 76, Respiratory Rate 18, BP 141/82, Pulse Ox 95% HEENT: Head normocephalic, atraumatic. Eyes: Extraocular muscles are intact. Pupils are equal, round and reactive to light and accommodation. Ears: No lesions. Nose appeared normal. Throat: No exudate or erythema. NECK: Supple. No JVD, no carotid bruit. No lymphadenopathy or thyromegaly. LUNGS: Clear to auscultation. Percussion note normal. Chest symmetrical. HEART: S1, S2, no S3. II/IV murmur over precordial area. No cyanosis or clubbing. No ascites. Pulses: Dorsalis pedis and posterior tibial pulses +1 to +2 both sides. ABDOMEN: Soft. Non-tender. Bowel sounds active. No CVA tenderness. No mass felt. EXTREMITIES: No edema. Full range of motion of all extremities, equal. NEUROLOGIC: No focal deficit. Cranial nerves II through XII are grossly intact. No headache, no double vision or headache. SKIN: Warm and dry. Intact. Turgor-normal. LYMPHATIC: No palpable lymph nodes/no lymphedema. MUSCULOSKELETAL: Normal joints with no swelling. Muscle tone is normal. LAB REVIEW: 11/30/18 04:45 11/30/18 04:45 11/30/18 04:45: Sodium 137.6, Potassium 4.82, Chloride 102.7, Carbon Dioxide 25.7, Anion Gap 14.02, BUN 35.6 H, Creatinine 0.88, Estimated GFR (MDRD) 64.00, BUN/Creatinine Ratio 40.45, Glucose 110.7 H D, Calcium 9.02, Total Bilirubin 0.71, AST 17.0, ALT 9.1, Alkaline Phosphatase 88.7, Total Protein 6.87, Albumin 3.43 L, Globulin 3.44, Albumin/Globulin Ratio 0.99 11/30/18 04:45: WBC 6.65, RBC 3.72 L, Hgb 9.4 L, Hct 31.5 L, MCV 84.7, MCH 25.3 L, MCHC 29.8 L, RDW Coeff of Jessica 17.2 H, Plt Count 253, Immature Gran % (Auto) 0.6, Neut % (Auto) 68.0, Lymph % (Auto) 19.1, [place] % (Auto) 10.2 H, Eos % (Auto ) 1.8, Baso % (Auto) 0.3, Immature Gran # (Auto) 0.0, Neut # (Auto) 4.5, Lymph # (Auto) 1.3, [place] # (Auto) 0.7, Eos # (Auto) 0.1, Baso # (Auto) 0.0 11/29/18 11:07: C-Reactive Prot, Quant 67.5 H 11/29/18 11:07: ESR 59 H ASSESSMENT: Please see below. 1. Bacterial endocarditis involving tricuspid valve. 2. Chronic anemia, multi-factorial PLAN: 1. Continue Cefepime 2. Continue all other medications 3. Discussed Eliquis with the patient, she now wants to get started on it. Considering the patient hgb and hct and not much hemorrhoidal bleeding we will start Eliquis. 4. Will refer to Dr. Ketan Moyer and will send all labs and reports to Dr. Nubia Rincon. Plan and coordination of the patient's care discussed in the presence of Antique Repairer and nurse. SCRIBED BY: KEISHA NELSON Tight Barrel Inspector scribed while in presence of service performed by Dr. MICKEY SANDS on 11/30/18 (0801)
[2018-11-30] MEDS: MAXIPIME 2 GM in SODIUM CHLORIDE 100 ML IV SCH (09:20)
[2018-11-30] MEDS: ANUCORT-HC RC SCH (09:20)
[2018-11-30] MEDS: NYSTOP POWDER TP SCH (09:21)
[2018-11-30] MEDS: LINZESS PO SCH (09:21)
[2018-11-30] MEDS: LOVENOX SUBCUT SCH (09:21)
[2018-11-30] MEDS: FLORASTOR PO SCH (09:22)
[2018-11-30] MEDS: VITAMIN D PO SCH (09:22)
[2018-11-30] MEDS: FERROUS SULFATE PO SCH (09:23)
[2018-11-30] MEDS: TRIGLIDE PO SCH (09:23)
[2018-11-30] MEDS: ZANAFLEX PO SCH (09:23)
[2018-11-30] MEDS: COZAAR PO SCH (09:23)
[2018-11-30] MEDS: ASPIRIN EC PO SCH (09:23)
[2018-11-30] MEDS: MICRO-K CAP PO SCH (09:23)
[2018-11-30] MEDS: LIPITOR PO SCH (09:23)
[2018-11-30] MEDS: NON-FORMULARY MEDICATION (Cyanocobalamin (Vitamin B-12) [B-12] 1,000 MCG) PO SCH (09:24)
--- NOTE | 2018-11-30 14:33 | ECHO2D ---
Date of Exam: 11/28/18 Ordering Physician: DR. MICKEY SANDS Room #: 116 Reason for Echo: A FIB/INFECTIOUS ENDOCARDITIS M-Mode Normal Adult Results LV Dimensions Normal Adult Results AoV Opening excursions >1.6 1.3 LVEDD-base- 3.5-5.8 5.2 Ao root dimensions 2.0-3.7 3.3 LVESD-base- 3.1-4.6 L. Atrium dimensions 1.9-3.8 4.6 Post. Wall thickness 0.8-1.1 1.1 IV septum (thickness) 0.7-1.2 1.2 Post. Wall excursion 0.72-1.3 NORMAL Septal motion NORMAL Systolic motion R. Ventricular cavity 1.5-2.0 NORMAL LVEF 60% 56% Paradoxical septal wall motion NORMAL 2-D : ENLARGED LEFT ATRIAL CAVITY--NORMAL PROSTHETIC AORTIC VALVE--NORMAL MITRAL VALVE--MASS SEEN ON TRICUSPID VALVE FLOPPING AROUND--NO EFFUSION, NO THROMBUS M-MODE: MV: NORMAL AV: NORMAL AORTIC VALVE PROSTHESIS TV: MASS/VEGETATION SEEN PV: NORMAL CHAMBER SIZE: ENLARGED LEFT ATRIAL CAVITY WALL MOTION: NORMAL PERICARDIUM: NORMAL INTERPRETATION: 1. LEFT VENTRICULAR HYPERTROPHY BORDERLINE WITH ENLARGED LEFT ATRIAL CAVITY 2. PRACTICALLY NORMAL LEFT VENTRICULAR CONTRACTILITY WITH EJECTION FRACTION 56% 3. ECHOGENIC MASS-FLOPPING ON TRICUSPID VALVE--SLIGHTLY LARGER THAN PREVIOUS ECHO 11/13/18 COPY OF THIS REPORT TO BE SENT TO DR.MARTIN ENGLAND AT [facility] AND JULIUS SMITH INFECTIOUS DISEASE SPECIALIST [facility]
--- NOTE | 2018-11-30 15:07 | CM.DICTOOL ---
ADMISSION: 11/24/18 11:53 DISCHARGE: NOVEMBER 30, 2018 DATE OF SERVICE: 11/30/18 FINAL DIAGNOSIS SYMPTOMATIC ANEMIA (TRANSFUSED 2UNITS PRBC) SEPSIS REPEAT BLOOD CULTURES PENDING TRICUSPID VALVE BACTERIAL ENDOCARDITIS BACTEREMIA- GAMELLA SANGUINIS 10/17/18 OSTEOARTHRITIS DEPRESSION GERD DIARRHEA DYSLIPIDEMIA COLONIC POLYP RECTAL BLEEDING HEMORRHOIDS HYPERTENSION HEART MURMUR PAROXYSMAL ATRIAL FIB FORAMINAL STENOSIS L4-L5 AND L5-S1 MILD SPINAL CANAL STENOSIS L4-L5 SEVERE SPINAL STENOSIS C5-C6 APPENDECTOMY BREAST REDUCTION CHOLECYSTECTOMY TUBAL LIGATION ALLOGRAFT AORTIC VALVE REPLACEMENT (10/2016) ENDOSCOPY/COLOSCOPY 09/26/18 ECHO 11/28/2018: DR. SANDS STATES VEGETATION IS AGAIN SEEN ON THE TRICUSPID VALVE. VIDEO SENT (WITH PATIENTS CONSENT) TO DR. MCCLENDON TO REVIEW. ECHO 11/15/18: BORDERLINE LEFT VENTRICULAR HYPERTROPHY WITH ENLARGED LEFT ATRIAL CAVITY. VEGETATION NOTED ON THE TRICUSPID VALVE 1 CM. MILD HYPOKINETIC SEPTUM ( EJECTION FRACTURE 50%) TRANSESOPHAGEAL ECHO 10/20/18 : 21 MM MAGNAEASE BIOPROSTHETIC VALVE. LEFT ATRIAL CAVITY MILDLY DILATED. MILD MITRAL VALVE REGURGITATION. NO MASSES OR VEGETATION SEEN. LAST VITALS Temp Pulse Resp BP Pulse Ox 97.7 F 76 18 141/82 H 95 11/30/18 05:53 11/30/18 05:53 11/30/18 05:53 11/30/18 05:53 11/30/18 05:53 TAKE THESE MEDICATIONS AT HOME Acetaminophen (Tylenol) 650 mg PO Q4H PRN PRN Reason: Mild Pain Last Admin: 11/30/18 01:55 Dose: 650 mg Apixaban (Eilquis) 5 mg PO BID [facility] Last Dose: Hydrocodone Bitart/Acetaminophen ([place] 7.5-325) 1 tab PO Q6HR PRN PRN Reason: Pain Last Admin: 11/30/18 04:17 Dose: 1 tab Atorvastatin Calcium (Lipitor) 40 mg PO DAILY [facility] Last Admin: 11/30/18 09:23 Dose: 40 mg Bisacodyl (Dulcolax) 10 mg RC DAILY PRN PRN Reason: Constipation Last Admin: 11/27/18 16:25 Dose: 10 mg Cholecalciferol (Vitamin D) 1,000 unit PO DAILY [facility] Last Admin: 11/30/18 09:22 Dose: 1,000 unit Fenofibrate (Triglide) 160 mg PO DAILYWM [facility] Last Admin: 11/30/18 09:23 Dose: 160 mg Ferrous Sulfate (Ferrous Sulfate) 324 mg PO BIDWM [facility] Last Admin: 11/30/18 09:23 Dose: 324 mg Furosemide (Lasix Tab) 20 mg PO QDAC [facility] Last Admin: 11/30/18 05:50 Dose: 20 mg Gabapentin (Neurontin) 300 mg PO BEDTIME [facility] Last Admin: 11/29/18 20:30 Dose: 300 mg Heparin Sodium (Beef Lung) (Heparin Flush) 30 unit IVF BID [facility] Last Admin: 11/30/18 09:24 Dose: 30 unit Hydrocortisone Acetate (Anucort-Hc) 1 supp RC BID [facility] Last Admin: 11/30/18 09:20 Dose: 1 supp Cefepime HCl 2 gm/ Sodium (Chloride) 100 mls @ 100 mls/hr IV Q12HR [facility] Stop: December 10, 2018 - Length extended by Dr. Jacob Last Admin: 11/30/18 09:20 Dose: 100 mls/hr Linaclotide (Linzess) 145 mcg PO 0800 [facility] Last Admin: 11/30/18 09:21 Dose: 145 mcg Losartan Potassium (Cozaar) 50 mg PO DAILY [facility] Last Admin: 11/30/18 09:23 Dose: 50 mg Magnesium Citrate (Citrate Of Magnesia) 10 oz PO DAILY PRN PRN Reason: Constipation Non-Formulary Medication (Cyanocobalamin (Vitamin B-12) [B-12]) 1,000 mcg PO DAILY [facility] Last Admin: 11/30/18 09:24 Dose: Not Given Nystatin (Nystop Powder) 1 applic TP TID [facility] Last Admin: 11/30/18 09:21 Dose: 1 applic Pantoprazole Sodium (Protonix) 40 mg PO DailyAC [facility] Last Admin: 11/30/18 05:50 Dose: 40 mg Potassium Chloride (Micro-K Cap) 10 meq PO DAILYWM [facility] Last Admin: 11/30/18 09:23 Dose: 10 meq Saccharomyces Boulardii (Florastor) 250 mg PO BID [facility] Last Admin: 11/30/18 09:22 Dose: 250 mg Sodium Chloride (Saline Flush) 1 syr IVF BID [facility] Last Admin: 11/30/18 09:25 Dose: 1 syr Tizanidine HCl (Zanaflex) 2 mg PO BID [facility] Last Admin: 11/30/18 09:23 Dose: 2 mg ALLERGIES Penicillins Adverse Reaction (Verified 11/08/18 13:32) Sulfa (Sulfonamide Antibiotics) Adverse Reaction (Verified 11/08/18 13:32) DISCONTINUED MEDICATIONS NONE NEW PRESCRIPTIONS: RESUME THE CEFEPIME 2 GRAMS EVERY [address] JACOB WITH A STOP DATE OF December. RESUME ELIQUIS 5 MG BY MOUTH TWICE A DAY NYSTOP POWDER TO BE APPLIED TO ABDOMINAL FOLDS AND PERIAREA THREE TIMES A DAY LINZESS 145 MCG ONE TABLET BY MOUTH DAILY ON AN EMPTY STOMACH SMOKING: NON SMOKER DISEASE SPECIFIC EDUCATION: ANEMIA ELIQUIS ANTICOAGULATION THERAPY SEPTICEMIA ATRIAL FIB BACTERIAL ENDOCARDITIS LAB REVIEW: 11/30/18 04:45 11/30/18 04:45 11/30/18 04:45: Sodium 137.6, Potassium 4.82, Chloride 102.7, Carbon Dioxide 25.7, Anion Gap 14.02, BUN 35.6 H, Creatinine 0.88, Estimated GFR (MDRD) 64.00, BUN/Creatinine Ratio 40.45, Glucose 110.7 H D, Calcium 9.02, Total Bilirubin 0.71, AST 17.0, ALT 9.1, Alkaline Phosphatase 88.7, Total Protein 6.87, Albumin 3.43 L, Globulin 3.44, Albumin/Globulin Ratio 0.99 11/30/18 04:45: WBC 6.65, RBC 3.72 L, Hgb 9.4 L, Hct 31.5 L, MCV 84.7, MCH 25.3 L, MCHC 29.8 L, RDW Coeff of Jessica 17.2 H, Plt Count 253, Immature Gran % (Auto) 0.6, Neut % (Auto) 68.0, Lymph % (Auto) 19.1, [place] % (Auto) 10.2 H, Eos % (Auto ) 1.8, Baso % (Auto) 0.3, Immature Gran # (Auto) 0.0, Neut # (Auto) 4.5, Lymph # (Auto) 1.3, [place] # (Auto) 0.7, Eos # (Auto) 0.1, Baso # (Auto) 0.0 11/29/18 11:07: C-Reactive Prot, Quant 67.5 H 11/29/18 11:07: ESR 59 H PLAN: DISCHARGE BACK TO [facility] TODAY 11/30/2018 DIET: CARDIAC; REGULAR CONSISTENCY AND THIN LIQUIDS ACTIVITY: UP TO DINING ROOM FOR MEALS MAY PARTICIPATE IN HALFWAY ACTIVITIES PT/OT EVAL AND TREAT CBC, CMP, SED RATE, AND CRP EVERY TUESDAY AND TUESDAY - CALL DR. SANDS WITH RESULTS ALSO PLEASE FAX RESULTS TO DR. JACOB OFFICE PHONE: FAX: VITAL SIGNS DAILY WEIGHT MONTHLY LIPIDS, TSH EVERY [address] SANDS IS REQUESTING MRS. JARRETT TO BE SEEN IN HIS OFFICE ON TuesdayDecember AT 1130 AM. PLEASE CALL IF UNABLE TO KEEP THIS APPOINTMENT. AN APPOINTMENT HAS BEEN REQUESTED WITH DR. DARIN MCCLENDON. AWAITING CALL BACK FROM HIS OFFICE. APPOINTMENT WITH DR. JACOB IS SCHEDULED FOR TuesdayDECEMBER 22 AT 10 AM. CODE STATUS: FULL CODE MRS. JARRETT IS ALERT, ORIENTED. SHE IS AWARE OF DISCHARGE BACK TO [facility] FOR CONTINUATION OF IV ANTIBIOTICS AND THERAPY. SPEECH IS CLEAR. SHE IS ABLE TO FEED HERSELF BUT DOES REQUIRE ASSISTANCE WITH BATHING, DRESSING, AND BATHROOM HYGIENE NEEDS. SHE AMBULATES WITH ASSISTANCE OF ROLLING WALKER AND ONE ASSIST. HER APPETITE IS GOOD. SHE IS NORMALLY CONTINENT OF BOWEL AND BLADDER BUT DOES HAVE THE OCCASIONAL EPISODE OF URINARY INCONTINENCE. SKIN TURGOR IS IMPROVED. HYDRATION STATUS IS ADEQUATE. SKIN IS INTACT EXCEPT FOR AREAS OF EXCORIATION TO THE ABDOMINAL/GROIN FOLDS. NO ACTIVE BLEEDING NOTED AT DISCHARGE. MICKEY SANDS M.D. SHILOH MELO APRN
--- NOTE | 2018-12-01 14:45 | PN ---
11/24/18: Level 5 11/25/18: Intermediate 11/26/18: Intermediate 11/27/18: Intermediate 11/28/18: Intermediate 11/29/18: Intermediate 11/30/18: D as in discharge MTDD
--- NOTE | 2018-12-05 14:52 | DS ---
DATE OF SERVICE: 11/30/18 FINAL DIAGNOSIS: 1. SYMPTOMATIC ANEMIA (TRANSFUSED 2UNITS PRBC) 2. SEPSIS REPEAT BLOOD CULTURES PENDING 3. TRICUSPID VALVE BACTERIAL ENDOCARDITIS 4. BACTEREMIA- GAMELLA SANGUINIS 10/17/18 5. OSTEOARTHRITIS 6. DEPRESSION 7. GERD 8. DIARRHEA 9. DYSLIPIDEMIA 10. COLONIC POLYP 11. RECTAL BLEEDING 12. HEMORRHOIDS 13. HYPERTENSION 14. HEART MURMUR 15. PAROXYSMAL ATRIAL FIB 16. FORAMINAL STENOSIS L4-L5 AND L5-S1 17. MILD SPINAL CANAL STENOSIS L4-L5 18. SEVERE SPINAL STENOSIS C5-C6 19. APPENDECTOMY 20. BREAST REDUCTION 21. CHOLECYSTECTOMY 22. TUBAL LIGATION 23. ALLOGRAFT AORTIC VALVE REPLACEMENT (10/2016) 24. ENDOSCOPY/COLOSCOPY 09/26/18 LAST VITALS: Temperature 97.5, pulse 76, respiratory rate 18, BP 141/82, pulse ox 95. DISCHARGE INSTRUCTIONS: 1. PT/OT EVAL AND TREAT 2. CBC, CMP, SED RATE, AND CRP EVERY TUESDAY AND TUESDAY - CALL DR. SANDS WITH RESULTS. ALSO PLEASE FAX RESULTS TO DR. JACOB OFFICE. PHONE: [phone] FAX: 3. VITAL SIGNS DAILY 4. WEIGHT MONTHLY 5. LIPIDS, TSH EVERY [address] SANDS IS REQUESTING MRS. JARRETT TO BE SEEN IN HIS OFFICE ON TuesdayDecember AT 1130 AM. PLEASE CALL IF UNABLE TO KEEP THIS APPOINTMENT. 7. AN APPOINTMENT HAS BEEN REQUESTED WITH DR. DARIN MCCLENDON. AWAITING CALL BACK FROM HIS OFFICE. 8. APPOINTMENT WITH DR. JACOB IS SCHEDULED FOR TuesdayDECEMBER 22 AT 10 AM. MEDICATIONS AT DISCHARGE: Acetaminophen (Tylenol) 650 mg PO Q4H PRN PRN Reason: Mild Pain Last Admin: 11/30/18 01:55 Dose: 650 mg Apixaban (Eilquis) 5 mg PO BID [facility] Last Dose: Hydrocodone Bitart/Acetaminophen ([place] 7.5-325) 1 tab PO Q6HR PRN PRN Reason: Pain Last Admin: 11/30/18 04:17 Dose: 1 tab Atorvastatin Calcium (Lipitor) 40 mg PO DAILY [facility] Last Admin: 11/30/18 09:23 Dose: 40 mg Bisacodyl (Dulcolax) 10 mg RC DAILY PRN PRN Reason: Constipation Last Admin: 11/27/18 16:25 Dose: 10 mg Cholecalciferol (Vitamin D) 1,000 unit PO DAILY [facility] Last Admin: 11/30/18 09:22 Dose: 1,000 unit Fenofibrate (Triglide) 160 mg PO DAILYWM [facility] Last Admin: 11/30/18 09:23 Dose: 160 mg Ferrous Sulfate (Ferrous Sulfate) 324 mg PO BIDWM [facility] Last Admin: 11/30/18 09:23 Dose: 324 mg Furosemide (Lasix Tab) 20 mg PO QDAC [facility] Last Admin: 11/30/18 05:50 Dose: 20 mg Gabapentin (Neurontin) 300 mg PO BEDTIME [facility] Last Admin: 11/29/18 20:30 Dose: 300 mg Heparin Sodium (Beef Lung) (Heparin Flush) 30 unit IVF BID [facility] Last Admin: 11/30/18 09:24 Dose: 30 unit Hydrocortisone Acetate (Anucort-Hc) 1 supp RC BID [facility] Last Admin: 11/30/18 09:20 Dose: 1 supp Cefepime HCl 2 gm/ Sodium (Chloride) 100 mls @ 100 mls/hr IV Q12HR [facility] Stop: December 10, 2018 - Length extended by Dr. Jacob Last Admin: 11/30/18 09:20 Dose: 100 mls/hr Linaclotide (Linzess) 145 mcg PO 0800 [facility] Last Admin: 11/30/18 09:21 Dose: 145 mcg Losartan Potassium (Cozaar) 50 mg PO DAILY [facility] Last Admin: 11/30/18 09:23 Dose: 50 mg Magnesium Citrate (Citrate Of Magnesia) 10 oz PO DAILY PRN PRN Reason: Constipation Non-Formulary Medication (Cyanocobalamin (Vitamin B-12) ) 1,000 mcg PO DAILY [facility] Last Admin: 11/30/18 09:24 Dose: Not Given Nystatin (Nystop Powder) 1 applic TP TID [facility] Last Admin: 11/30/18 09:21 Dose: 1 applic Pantoprazole Sodium (Protonix) 40 mg PO DailyAC [facility] Last Admin: 11/30/18 05:50 Dose: 40 mg Potassium Chloride (Micro-K Cap) 10 meq PO DAILYWM [facility] Last Admin: 11/30/18 09:23 Dose: 10 meq Saccharomyces Boulardii (Florastor) 250 mg PO BID [facility] Last Admin: 11/30/18 09:22 Dose: 250 mg Sodium Chloride (Saline Flush) 1 syr IVF BID [facility] Last Admin: 11/30/18 09:25 Dose: 1 syr Tizanidine HCl (Zanaflex) 2 mg PO BID [facility] Last Admin: 11/30/18 09:23 Dose: 2 mg NEW PRESCRIPTIONS: RESUME THE CEFEPIME 2 GRAMS EVERY [address] JACOB WITH A STOP DATE OF December. RESUME ELIQUIS 5 MG BY MOUTH TWICE A DAY NYSTOP POWDER TO BE APPLIED TO ABDOMINAL FOLDS AND PERIAREA THREE TIMES A DAY LINZESS 145 MCG ONE TABLET BY MOUTH DAILY ON AN EMPTY STOMACH DISCONTINUED MEDICATIONS: NONE DIET INSTRUCTIONS: CARDIAC; REGULAR CONSISTENCY AND THIN LIQUIDS ACTIVITY: UP TO DINING ROOM FOR MEALS. MAY PARTICIPATE IN CORRECTION ACTIVITIES. SMOKING: NONSMOKER DISEASE SPECIFIC EDUCATION: ANEMIA ELIQUIS ANTICOAGULATION THERAPY SEPTICEMIA ATRIAL FIB BACTERIAL ENDOCARDITIS HOSPITAL COURSE: 68-year-old white female hospitalized with anemia, symptomatic. The patient as transfused two units of packed red cells and hemoglobin went up to 9.4 with hematocrit of 31. The patient was taken off Eliquis again like last hospitalization. The patient then after a long discussion has decided to take Eliquis and acknowledged that it may make her hemorrhoids bleed more. The past couple of weeks she said she did not have much bleeding at all except for one time. In any case, the patient's other problem is tricuspid vegetation which seems to have increased in size some. She had missed Cefepime for one week in the care home. She was restarted on Cefepime during this hospitalization and she is going to be extended one more week after her initial stop date of . It was decided after discussion with Nubia Rincon. The case was also discussed with Grounds Caretaker, Dr. Darin Mcclendon and I am going to schedule a followup appointment with him because the patient may end up with surgery and needs svp marketing & communications at [employer]. Sed rate and CRP decreased from previous level. After discussing the case with Infectious Disease through nurse practitioner, the patient is going to be continued on Cefepime now extending it to one more week to December 10, 2018. The patient has followup appointment with Dr. Darin Mcclendon and Dr. Nubia Rincon. The patient will be seen by me on Wednesday morning on followup. The patient's cardiovascular status is stable with no evidence of CHF. In fact, she is feeling better, she is afebrile. White blood cell count is 6,600. Appetite has improved. Hemoglobin and hematocrit remain stable and rising to 9.4 with hematocrit of 31. On the day of discharge, the kidney functions are normal. She is going to have sed rate and CRP done twice a week. CONDITION: Stable. PROGNOSIS: Guarded. TIME SPENT: More than 60 minutes. MTDD
== END 2018-11-30 15:24 | DRG 871 ==
LOC: MEDSURG B 11:53
PROVIDERS: ADMIT Internal Medicine; ATTEND Internal Medicine
PROC: 30233N1 Transfusion of Nonautologous Red Blood Cells into Peripheral Vein, Percutaneous Approach (ICD-10-PCS; principal; 2018-11-24)
DX: A41.9 Sepsis, unspecified organism (principal); I33.0 Acute and subacute infective endocarditis; R78.81 Bacteremia; K62.5 Hemorrhage of anus and rectum; K21.9 Gastro-esophageal reflux disease without esophagitis; K63.5 Polyp of colon; K64.9 Unspecified hemorrhoids; B96.89 Other specified bacterial agents as the cause of diseases classified elsewhere; I10 Essential (primary) hypertension; I48.0 Paroxysmal atrial fibrillation; F32.9 Major depressive disorder, single episode, unspecified; E78.5 Hyperlipidemia, unspecified; R01.1 Cardiac murmur, unspecified; R19.7 Diarrhea, unspecified; M19.90 Unspecified osteoarthritis, unspecified site; M79.606 Pain in leg, unspecified
CPT/HCPCS: 36415; 36430; 80053; 81001; 85008; 85025; 85651; 86140; 86850; 86900; 86922; 87040; 87070; 87081; 93005; 93010

== ENCOUNTER 2018-12-08 14:12 | Outpatient (CLI) | END 2018-12-08 14:40 | disposition short-term general hospital (02) | LOC: AMBL 14:12 | PROVIDERS: ATTEND Internal Medicine | DX: R41.0 Disorientation, unspecified (principal); R40.4 Transient alteration of awareness; R53.1 Weakness; R60.0 Localized edema; K62.89 Other specified diseases of anus and rectum; I95.9 Hypotension, unspecified; W19.XXXA Unspecified fall, initial encounter ==